=== PATIENT | female | born 1995 | race Caucasian/White ===

== ENCOUNTER → 2020-06-19 08:54 | Outpatient (BNVA) | payer OTHER, MEDICAID, SELFPAY | PROVIDERS: Family Provider Nurse Practitioner Family; PCP Nurse Practitioner; Visit Provider Nurse Practitioner Family | DX: Z11.59 Encounter for screening for other viral diseases (principal); J02.9 Acute pharyngitis, unspecified | CPT/HCPCS: 87071; 87635; 87880 ==

== ENCOUNTER → 2020-11-15 08:30 | Outpatient (BNVA) | payer OTHER, MEDICAID, SELFPAY | PROVIDERS: Family Provider Nurse Practitioner Family; PCP Nurse Practitioner; Visit Provider Nurse Practitioner Women's Health | DX: Z01.419 Encounter for gynecological examination (general) (routine) without abnormal findings (principal); F41.9 Anxiety disorder, unspecified; F32.9 Major depressive disorder, single episode, unspecified; F98.8 Other specified behavioral and emotional disorders with onset usually occurring in childhood and adolescence | CPT/HCPCS: 88175 ==

== ENCOUNTER 2020-12-23 16:07 | Emergency (ER) | payer OTHER, MEDICAID, SELFPAY ==
[2020-12-23 16:13] VITALS: BP 112/77; PULSE 99; RESP 18; TEMP 37.1; O2SAT 96; BMI 22.3
--- NOTE | 2020-12-23 17:23 | ED_ITS ---
Documented by User: Santa Allred MD 12/23/20 18:02 HPI - General: Chief complaint: Abdominal Pain Stated complaint: 6 WKS PREG, SHARP AB PAIN Time Seen by Provider: 12/23/20 16:37 Source: patient and family Mode of arrival: ambulatory History of Present Illness: HPI Narrative: 25-year-old female, , about 6 weeks with nausea and vomiting for several days, hardly able to keep anything down. Is weak and dehydrated. She has intermittent abdominal pains, diffuse, generalized; mostly in her sides and upper stomach. Frequent acid reflux. She has tried taking OTC Dramamine. No sonogram yet, has her first appointment on December 31. Vaginal bleeding or abnormal discharge. Decreased urine output without dysuria or pelvic pain. Complaint: abdominal pain Onset (ago): day(s) Pain Consistency: intermittent Location: pelvis, abdomen and flank Severity: mild Quality: Stabbing, Aching and Sharp Radiation: abdomen Vaginal discharge: none Vaginal bleeding: none Patient : Yes Associated symptoms: Reports abdominal pain and malaise; Deny dysuria, headache(s) or vaginal discharge Review of Systems General: Reports: 10 or more systems reviewed and unremarkable except in HPI and below Const: Reports: body aches, change in appetite, fatigue and malaise; Denies: fever(s), chills or diaphoresis Eyes: Denies: change in vision or blurry vision ENMT: Denies: throat pain, disequilibrium, nasal discharge or nasal congestion Card: Denies: chest pain, palpitations or irregular heart rhythm Resp: Denies: dyspnea, productive cough, wheezing, pain on inspiration or chest congestion GI: Reports: abdominal pain, nausea, vomiting, heartburn and bloating; Denies: hematemesis, diarrhea or constipation : Reports: flank pain and oliguria; Denies: difficulty voiding, dysuria, urinary frequency, genital lesions, vaginal odor, vaginal bleeding or vaginal discharge Musc: Reports: back pain and extremity pain Skin/Breast: Denies: rash, pruritus or erythema Neuro: Denies: headache(s), weakness in extremities, frequent falls, dizziness, vertigo or confusion PFSH ED PFSH: Medical History ADD (attention deficit disorder) Anxiety and depression Environmental and seasonal allergies Migraine no aura-- med change for ADD correccted this No pertinent past medical history neghx: htn,dm,thyroid,dvt/pe PCP: Enio Bhakta Surgical History No history of previous surgery Family History Grandmother Hypertension Maternal and Paternal Ovarian cancer Maternal--dx age late 20's Grandfather Hypertension Maternal and Paternal Family/Other Ovarian cancer Maternal Great Grandmother--dx age 60's Denies family history of Colon cancer Diabetes Heart disease Hypercholesteremia Breast cancer Uterine cancer Thyroid disease Stroke Physical Exam Const: COMMON NORMALS: average body habitus, patient oriented x3 and alert GENERAL APPEARANCE: disheveled and ill appearing; not in distress ORIENTATION/CONSCIOUSNESS: Yes oriented to person and Yes oriented to place HENMT: COMMON NORMALS: normocephalic, atraumatic, Normal external nose present and oropharynx normal HEAD & SCALP: normocephalic and atraumatic NOSE: Normal external nose present Eye: COMMON NORMALS: Equal, round and reactive pupils present, EOMs intact bilaterally, conjunctivae normal and no scleral icterus CONJUNCTIVA: Yes conjunctivae normal PUPIL: Yes Equal, round and reactive pupils present Neck/C-Spine: COMMON NORMALS: full ROM, no lymphadenopathy and supple Resp: COMMON NORMALS: normal respiratory effort, No use of accessory muscles and clear to auscultation bilaterally AUSCULTATION: clear to auscultation bilaterally Cardio: COMMON NORMALS: regular rhythm, S1 normal heart sound present and S2 normal heart sound present RATE: tachycardic RHYTHM: regular rhythm HEART SOUNDS: S1 normal heart sound present and S2 normal heart sound present GI: COMMON NORMALS: Normal to inspection, nondistended, normoactive bowel sounds present, Soft to palpation and non-tender PALPATION: Yes Soft to palpation, No Guarding due to palpation present (GI), No Rigid due to palpation, No Rebound tenderness present and No Bladder palpation abnormal : COMMON NORMALS: Yes no CVA tenderness BLADDER/KIDNEY EXAM: Yes no CVA tenderness and No Bladder palpation abnormal Back/Pelvis: COMMON NORMALS: no CVA tenderness and thoracic and lumbar spine normal to inspection Extremity: COMMON NORMALS: normal to inspection, full ROM and capillary refill normal Neuro: COMMON NORMALS: patient oriented x3, moves all extremities and no focal motor deficits SENSORIUM/ORIENTATION: Yes alert, Yes oriented to person and Yes oriented to place Skin: COMMON NORMALS: no rashes or lesions noted and no wounds GENERAL SKIN EXAM: no rashes or lesions noted Course Vital Signs: Vital signs: Vital Signs Temperature 98.7 F 12/23/20 16:13 Pulse Rate 89 12/23/20 20:31 Respiratory Rate 17 12/23/20 20:31 Blood Pressure 109/66 12/23/20 20:31 Pulse Oximetry 100 12/23/20 20:31 MDM - OB/Uterine Contractions MDM Narrative: Medical decision making narrative: 25-year-old female, 6 weeks , complaining of nausea and vomiting after eating for the last 3 days, malaise, fatigue. Intermittent abdominal pain, nonlocalized. No fever or vaginal bleeding. UA is concentrated, 3+ ketones, otherwise no sign of acute infection. Abdomen is soft and nontender. Sono or quant hCG not indicated at this time, her symptoms are most consistent with related emesis; her abdominal pain is intermittent, mainly epigastric, most likely due to retching. Plan; IV fluid, antiemetics, H2 beny and p.o. challenge. She is tolerating clears, and feels better after treatment, anticipate discharge home to follow-up with her DOCUMENTATION ENGINEER next available. Medical Records: Attestation: I reviewed the patient's medical records. Lab Data: Attestation: I reviewed the patient's lab results. Labs: Lab Results 12/23/20 12/23/20 12/23/20 Range/Units 17:15 17:15 19:11 WBC 9.0 (4.0-10.0) 10^3/ uL RBC 4.61 (4.1-5.3) 10^6/u L Hgb 13.2 (11.5-15.3) g/dL Hct 39.5 (37.0-47.0) % MCV 85.7 (81-99) fL MCH 28.6 (28.0-34.0) pg MCHC 33.4 (30.0-36.0) g/dL RDW 13.4 (12.1-15.1) % Plt Count 238 (130-400) 10^3/c mm MPV 10.3 (7.4-10.4) fL Neut % (Auto) 58.8 % Lymph % (Auto) 31.1 % [place] % (Auto) 9.3 % Eos % (Auto) 0.4 % Baso % (Auto) 0.2 % Neut # (Auto) 5.26 (1.8-7.7) 10^3/u L Lymph # (Auto) 2.8 (0.8-4.8) 10^3/u L [place] # (Auto) 0.8 (0.2-0.9) 10^3/u L Eos # (Auto) 0.0 (0.0-0.8) 10^3/u L Baso # (Auto) 0.0 (0.0-0.1) 10^3/u L Nucleated RBC % (a uto) 0 % Nucleated RBCs # 0.0 /100WBC Sodium (136-145) mmol/L Potassium (3.5-5.1) mmol/L Chloride (98-107) mmol/L Carbon Dioxide (22-29) mmol/L Anion Gap (5-19) BUN (6-20) mg/dL Creatinine (0.5-0.9) mg/dL GFR Calculation (90-130) mL/min Glucose (65-115) mg/dL Calculated Osmolal ity (285-295) mOsm/k g Calcium (8.5-10.5) mg/dL Total Bilirubin (0.15-1.2) mg/dL AST (0-32) U/L ALT (0-33) U/L Alkaline Phosphata se (35-105) IU/L Total Protein (6.6-8.7) g/dL Albumin (3.5-5.2) g/dL Globulin (1.3-4.6) g/dL HCG, Qual Positive H (Negative) Ser , Ember i-Qnt mIU/mL Urine Color Dark yellow (Yellow) Urine Appearance Clear (CLEAR) Urine pH 5 (5-7) Ur Specific Gravit y 1.030 (1.005-1.030) Urine Protein Neg (Negative) Urine Glucose (UA) Norm (Normal) Urine Ketones 3+ H (Negative) Urine Blood Neg (Negative) Urine Nitrate Negative (Negative) Urine Bilirubin 1+ H (Negative) Urine Urobilinogen 8 H (Negative) mg/dL Ur Leukocyte Padmaja ase Negative (Negative) 12/23/20 Range/Units 19:11 WBC (4.0-10.0) 10^3/ uL RBC (4.1-5.3) 10^6/u L Hgb (11.5-15.3) g/dL Hct (37.0-47.0) % MCV (81-99) fL MCH (28.0-34.0) pg MCHC (30.0-36.0) g/dL RDW (12.1-15.1) % Plt Count (130-400) 10^3/c mm MPV (7.4-10.4) fL Neut % (Auto) % Lymph % (Auto) % [place] % (Auto) % Eos % (Auto) % Baso % (Auto) % Neut # (Auto) (1.8-7.7) 10^3/u L Lymph # (Auto) (0.8-4.8) 10^3/u L [place] # (Auto) (0.2-0.9) 10^3/u L Eos # (Auto) (0.0-0.8) 10^3/u L Baso # (Auto) (0.0-0.1) 10^3/u L Nucleated RBC % (a uto) % Nucleated RBCs # /100WBC Sodium 133 L (136-145) mmol/L Potassium 4.0 (3.5-5.1) mmol/L Chloride 103 (98-107) mmol/L Carbon Dioxide 17 L (22-29) mmol/L Anion Gap 17.0 (5-19) BUN 8 (6-20) mg/dL Creatinine 0.4 L (0.5-0.9) mg/dL GFR Calculation 196.1 H (90-130) mL/min Glucose 63 L (65-115) mg/dL Calculated Osmolal ity 272 L (285-295) mOsm/k g Calcium 8.3 L (8.5-10.5) mg/dL Total Bilirubin 0.5 (0.15-1.2) mg/dL AST 15 (0-32) U/L ALT 10 (0-33) U/L Alkaline Phosphata se 37 (35-105) IU/L Total Protein 6.5 L (6.6-8.7) g/dL Albumin 3.9 (3.5-5.2) g/dL Globulin 2.6 (1.3-4.6) g/dL HCG, Qual (Negative) Ser , Ember i-Qnt 02047.00 mIU/mL Urine Color (Yellow) Urine Appearance (CLEAR) Urine pH (5-7) Ur Specific Gravit y (1.005-1.030) Urine Protein (Negative) Urine Glucose (UA) (Normal) Urine Ketones (Negative) Urine Blood (Negative) Urine Nitrate (Negative) Urine Bilirubin (Negative) Urine Urobilinogen (Negative) mg/dL Ur Leukocyte Padmaja ase (Negative) Discharge Plan Discharge Patient Disposition: Home Clinical Impression: Vomiting affecting , Intrauterine Condition: Stable Prescriptions: New Reglan 10 mg tablet 10 mg PO Q6H PRN (Reason: nausea and vomiting) Qty: 20 RF: 0 No Action Dramamine 1 tab PO Q6H PRN (Reason: Nausea) RF: 0 1 tab PO DAILY@2100 RF: 0 Celexa 10 mg tablet 10 mg PO DAILY@2100 RF: 0 Discharge Orders: Discharge ED (Routine); Ordered 12/23/20 Ordered By: Enoc Xie Referrals: Arpit Bhakta, RETAIL SUPERVISOR-C [Primary Care Provider] - Discharge Diet: Advance as tolerated Discharge Activity: Increase activity as tolerated Patient Instructions: (ED), Acute Nausea and Vomiting (ED) Activity Restrictions/Additional Instructions: Return for abdominal cramping, vaginal bleeding, worsening vomiting despite treatment, other concerning symptoms. Take nausea medicine 3 times daily scheduled for the first 48 hours, then as needed. Follow a liquid diet for at least 12 hours before advancing to solid foods. Drink plenty of water at least for the next 48 hours. Coding Level of Care Code ED Care Management Coordinator for Chg Fwd Exam Comprehensive Documented by User: Enoc Xie, 12/23/20 21:46 HPI - General: Chief complaint: Abdominal Pain Stated complaint: 6 WKS PREG, SHARP AB PAIN Time Seen by Provider: 12/23/20 16:37 PFSH ED PFSH: Medical History ADD (attention deficit disorder) Anxiety and depression Environmental and seasonal allergies Migraine no aura-- med change for ADD correccted this No pertinent past medical history neghx: htn,dm,thyroid,dvt/pe PCP: Enio Bhakta Surgical History No history of previous surgery Family History Grandmother Hypertension Maternal and Paternal Ovarian cancer Maternal--dx age late 20's Grandfather Hypertension Maternal and Paternal Family/Other Ovarian cancer Maternal Great Grandmother--dx age 60's Denies family history of Colon cancer Diabetes Heart disease Hypercholesteremia Breast cancer Uterine cancer Thyroid disease Stroke Course Vital Signs: Vital signs: Vital Signs Temperature 98.7 F 12/23/20 16:13 Pulse Rate 89 12/23/20 20:31 Respiratory Rate 17 12/23/20 20:31 Blood Pressure 109/66 12/23/20 20:31 Pulse Oximetry 100 12/23/20 20:31 MDM - OB/Uterine Contractions MDM Narrative: Medical decision making narrative: 25-year-old female checked out to me by Dr. Allred at shift change. She is 6 weeks by history and has had significant vomiting. No vaginal bleeding. She has 3+ ketones in her urine, bicarbonate level 17. She is received 2 L here. She has had Zofran and Pepcid and is feeling better. She has an intrauterine by ultrasound measuring 6 weeks 1 day with an appropriate quant. She will go home on antiemetics. Liquid diet, advancing. Outpatient follow-up. Lab Data: Labs: Lab Results 12/23/20 12/23/20 12/23/20 Range/Units 17:15 17:15 19:11 WBC 9.0 (4.0-10.0) 10^3/ uL RBC 4.61 (4.1-5.3) 10^6/u L Hgb 13.2 (11.5-15.3) g/dL Hct 39.5 (37.0-47.0) % MCV 85.7 (81-99) fL MCH 28.6 (28.0-34.0) pg MCHC 33.4 (30.0-36.0) g/dL RDW 13.4 (12.1-15.1) % Plt Count 238 (130-400) 10^3/c mm MPV 10.3 (7.4-10.4) fL Neut % (Auto) 58.8 % Lymph % (Auto) 31.1 % [place] % (Auto) 9.3 % Eos % (Auto) 0.4 % Baso % (Auto) 0.2 % Neut # (Auto) 5.26 (1.8-7.7) 10^3/u L Lymph # (Auto) 2.8 (0.8-4.8) 10^3/u L [place] # (Auto) 0.8 (0.2-0.9) 10^3/u L Eos # (Auto) 0.0 (0.0-0.8) 10^3/u L Baso # (Auto) 0.0 (0.0-0.1) 10^3/u L Nucleated RBC % (a uto) 0 % Nucleated RBCs # 0.0 /100WBC Sodium (136-145) mmol/L Potassium (3.5-5.1) mmol/L Chloride (98-107) mmol/L Carbon Dioxide (22-29) mmol/L Anion Gap (5-19) BUN (6-20) mg/dL Creatinine (0.5-0.9) mg/dL GFR Calculation (90-130) mL/min Glucose (65-115) mg/dL Calculated Osmolal ity (285-295) mOsm/k g Calcium (8.5-10.5) mg/dL Total Bilirubin (0.15-1.2) mg/dL AST (0-32) U/L ALT (0-33) U/L Alkaline Phosphata se (35-105) IU/L Total Protein (6.6-8.7) g/dL Albumin (3.5-5.2) g/dL Globulin (1.3-4.6) g/dL HCG, Qual Positive H (Negative) Ser , Ember i-Qnt mIU/mL Urine Color Dark yellow (Yellow) Urine Appearance Clear (CLEAR) Urine pH 5 (5-7) Ur Specific Gravit y 1.030 (1.005-1.030) Urine Protein Neg (Negative) Urine Glucose (UA) Norm (Normal) Urine Ketones 3+ H (Negative) Urine Blood Neg (Negative) Urine Nitrate Negative (Negative) Urine Bilirubin 1+ H (Negative) Urine Urobilinogen 8 H (Negative) mg/dL Ur Leukocyte Padmaja ase Negative (Negative) 12/23/20 Range/Units 19:11 WBC (4.0-10.0) 10^3/ uL RBC (4.1-5.3) 10^6/u L Hgb (11.5-15.3) g/dL Hct (37.0-47.0) % MCV (81-99) fL MCH (28.0-34.0) pg MCHC (30.0-36.0) g/dL RDW (12.1-15.1) % Plt Count (130-400) 10^3/c mm MPV (7.4-10.4) fL Neut % (Auto) % Lymph % (Auto) % [place] % (Auto) % Eos % (Auto) % Baso % (Auto) % Neut # (Auto) (1.8-7.7) 10^3/u L Lymph # (Auto) (0.8-4.8) 10^3/u L [place] # (Auto) (0.2-0.9) 10^3/u L Eos # (Auto) (0.0-0.8) 10^3/u L Baso # (Auto) (0.0-0.1) 10^3/u L Nucleated RBC % (a uto) % Nucleated RBCs # /100WBC Sodium 133 L (136-145) mmol/L Potassium 4.0 (3.5-5.1) mmol/L Chloride 103 (98-107) mmol/L Carbon Dioxide 17 L (22-29) mmol/L Anion Gap 17.0 (5-19) BUN 8 (6-20) mg/dL Creatinine 0.4 L (0.5-0.9) mg/dL GFR Calculation 196.1 H (90-130) mL/min Glucose 63 L (65-115) mg/dL Calculated Osmolal ity 272 L (285-295) mOsm/k g Calcium 8.3 L (8.5-10.5) mg/dL Total Bilirubin 0.5 (0.15-1.2) mg/dL AST 15 (0-32) U/L ALT 10 (0-33) U/L Alkaline Phosphata se 37 (35-105) IU/L Total Protein 6.5 L (6.6-8.7) g/dL Albumin 3.9 (3.5-5.2) g/dL Globulin 2.6 (1.3-4.6) g/dL HCG, Qual (Negative) Ser , Ember i-Qnt 41623.00 mIU/mL Urine Color (Yellow) Urine Appearance (CLEAR) Urine pH (5-7) Ur Specific Gravit y (1.005-1.030) Urine Protein (Negative) Urine Glucose (UA) (Normal) Urine Ketones (Negative) Urine Blood (Negative) Urine Nitrate (Negative) Urine Bilirubin (Negative) Urine Urobilinogen (Negative) mg/dL Ur Leukocyte Padmaja ase (Negative) Discharge Plan Discharge Patient Disposition: Home Clinical Impression: Vomiting affecting , Intrauterine Condition: Stable Prescriptions: New Reglan 10 mg tablet 10 mg PO Q6H PRN (Reason: nausea and vomiting) Qty: 20 RF: 0 No Action Dramamine 1 tab PO Q6H PRN (Reason: Nausea) RF: 0 1 tab PO DAILY@2100 RF: 0 Celexa 10 mg tablet 10 mg PO DAILY@2100 RF: 0 Discharge Orders: Discharge ED (Routine); Ordered 12/23/20 Ordered By: Enoc Xie Referrals: Arpit Bhakta, RETAIL SUPERVISOR-C [Primary Care Provider] - Discharge Diet: Advance as tolerated Discharge Activity: Increase activity as tolerated Patient Instructions: (ED), Acute Nausea and Vomiting (ED) Activity Restrictions/Additional Instructions: Return for abdominal cramping, vaginal bleeding, worsening vomiting despite treatment, other concerning symptoms. Take nausea medicine 3 times daily scheduled for the first 48 hours, then as needed. Follow a liquid diet for at least 12 hours before advancing to solid foods. Drink plenty of water at least for the next 48 hours. Coding Level of Care Code ED Care Management Coordinator for Chg Fwd Exam Comprehensive
[2020-12-23 17:37] LABS: Add Urine Microscopic? NO
[2020-12-23 17:45] LABS: Bilirubin Urine 1+ (Negative); Blood Urine Neg (Negative); Glucose Urine UA Norm (Normal); HCG Qualitative Urine. Positive (Negative); Ketones Urine 3+ (Negative); Leukocyte Esterase Urine Negative (Negative); Nitrate Urine Negative (Negative); Protein Urine Neg (Negative); Urine Appearance Clear (CLEAR); Urine Color Dark Yellow (Yellow); Urobilinogen Urine 8 mg/dL (Negative); pH Urine 5 (5-7)
[2020-12-23] MEDS: sodium chloride 0.9% 1,000 ML 999 ML IV ×2 (18:20→19:17)
[2020-12-23] MEDS: famotidine 20 mg/2 mL INJ 40 MG IVP (18:27)
[2020-12-23] MEDS: ondansetron 2 mg/ML SDV 2 mL 4 MG IVP (18:28)
--- NOTE | 2020-12-23 18:56 | USR_ITS ---
PROCEDURE INFORMATION: Exam: US , Limited Exam date and time: 12/23/2020 9:21 PM Age: 25 years old Clinical indication: complicated by abdominal or pelvic pain; Right lower quadrant; First trimester; Gestational age or lmp: 7w2d; ; Patient HX: ; Additional info: 6wk abd pain TECHNIQUE: Imaging protocol: Real-time ultrasound of the maternal uterus with image documentation. Exam focused on the clinical indication. COMPARISON: US Pelvis Female [id number] 10/25/2015 7:37 AM FINDINGS: Gestation: Single intrauterine gestation. 3 mm yolk sac present. heart rate: 141 bpm. Placenta: 1.1 x 0.6 cm hypoechoic region superior to the gestation could represent a small subchorionic hemorrhage. BIOMETRY: Gestational age (AUA): 6 weeks 1 day Estimated due date (AUA): 08/17/2021. [place] length: 4.4 mm MATERNAL: Cervix: 3.5 cm in length. Right adnexa: The right ovary measures 2.1 x 2.9 x 1.4 cm with normal blood flow. Left adnexa: The left ovary measures 2.5 x 2.9 x 1.8 cm with normal blood flow. Intraperitoneal space: No free peritoneal fluid. US/US OB limited [id number] IMPRESSION: 1. Single viable intrauterine gestation estimated at 6 weeks 1 day. 2. Probable small superior subchorionic hemorrhage.
[2020-12-23 19:19] VITALS: BP 116/70; PULSE 85; RESP 17; O2SAT 100
[2020-12-23 19:22] LABS: Basophils % 0.2 %; Eosinophils % 0.4 %; Hematocrit 39.5 % (37.0-47.0); Hemoglobin 13.2 g/dL (11.5-15.3); Lymphocytes # 2.8 10^3/uL (0.8-4.8); Lymphocytes % 31.1 %; Mean Corpuscular HGB Conc 33.4 g/dL (30.0-36.0); Mean Corpuscular Hemoglobin 28.6 pg (28.0-34.0); Mean Corpuscular Volume 85.7 fL (81-99); Mean Platelet Volume 10.3 fL (7.4-10.4); Monocytes # 0.8 10^3/uL (0.2-0.9); Monocytes % 9.3 %; Neutrophils # 5.26 10^3/uL (1.8-7.7); Neutrophils % 58.8 %; Nucleated Red Blood Cells % 0 %; Platelet Count 238 10^3/cmm (130-400); Red Blood Count 4.61 10^6/uL (4.1-5.3); Red Cell Distribution Width 13.4 % (12.1-15.1)
[2020-12-23 20:07] LABS: Alanine Aminotransferase 10 U/L (0-33); Albumin Level 3.9 g/dL (3.5-5.2); Alkaline Phosphatase 37 IU/L (35-105); Aspartate Amino Transferase 15 U/L (0-32); Blood Urea Nitrogen 8 mg/dL (6-20); Calcium 8.3 mg/dL (8.5-10.5); Carbon Dioxide 17 mmol/L (22-29); Chloride 103 mmol/L (98-107); Globulin 2.6 g/dL (1.3-4.6); Glomerular Filtration Rate 196.1 mL/min (90-130); Glucose 63 mg/dL (65-115); Osmolality Calculated 272 mOsm/kg (285-295); Sodium 133 mmol/L (136-145); Total Bilirubin 0.5 mg/dL (0.15-1.2); Total Protein 6.5 g/dL (6.6-8.7)
[2020-12-23 20:31] VITALS: BP 109/66; PULSE 89; RESP 17; O2SAT 100
[2020-12-23 21:53] VITALS: BP 99/62; PULSE 82; RESP 18; O2SAT 99
== END 2020-12-23 21:53 | disposition home or self-care (01) ==
PROVIDERS: Family Medicine; Emergency Provider Emergency Medicine; PCP Nurse Practitioner
DX: O21.9 Vomiting of pregnancy, unspecified (principal); Z3A.01 Less than 8 weeks gestation of pregnancy
CPT/HCPCS: 36415; 76815; 80053; 81003; 81025; 84702; 85025; 96361; 96374; 96375; 99283; J2405; J3490; J7030

== ENCOUNTER 2021-01-10 21:42 | Emergency (ER) | payer OTHER, MEDICAID, SELFPAY ==
[2021-01-10 21:52] VITALS: BP 103/71; PULSE 90; RESP 16; TEMP 36.8; O2SAT 98; BMI 23.0
--- NOTE | 2021-01-10 22:56 | ED_ITS ---
HPI - Abdominal Pain General: Chief Complaint: Abdominal Pain Stated Complaint: stomach pain, 8 weeks preg Time Seen by Provider: 01/10/21 22:43 History of Present Illness: HPI narrative: Patient is a 25-year-old female comes to the ED with UTI symptoms. Patient is also approximately 8 weeks . She denies any vaginal bleeding. She has been having some dysuria for the past 2 days and today she started developing some lower pelvic pain. Denies any fever, chills, constipation, diarrhea, hematuria. Patient does states she has had some nausea and emesis that started with this . Associated Symptoms: Reports dysuria; Denies chills, constipation, diarrhea, fever(s), hematochezia, hematuria, nausea and vomiting Review of Systems Const: Denies: fever(s), chills or fatigue Eyes: Denies: change in vision or eye discomfort ENMT: Denies: throat pain, odynophagia, nasal discharge or nasal congestion Card: Denies: chest pain, palpitations, edema, swelling of feet/ankles, dyspnea on exertion or orthopnea Resp: Denies: dyspnea, productive cough or non-productive cough GI: Denies: abdominal pain, nausea, vomiting, diarrhea, constipation or hematochezia : Reports: dysuria and pelvic pain; Denies: flank pain or hematuria Musc: Denies: neck pain, back pain or extremity swelling Skin/Breast: Denies: rash or new lesions Neuro: Denies: headache(s), numbness in extremities or weakness in extremities PFSH ED PFSH: Medical History ADD (attention deficit disorder) Anxiety and depression Environmental and seasonal allergies Migraine no aura-- med change for ADD correccted this No pertinent past medical history neghx: htn,dm,thyroid,dvt/pe PCP: Enio Bhakta Surgical History No history of previous surgery Family History Grandmother Hypertension Maternal and Paternal Ovarian cancer Maternal--dx age late 20's Grandfather Hypertension Maternal and Paternal Family/Other Ovarian cancer Maternal Great Grandmother--dx age 60's Denies family history of Colon cancer Diabetes Heart disease Hypercholesteremia Breast cancer Uterine cancer Thyroid disease Stroke Physical Exam Const: COMMON NORMALS: no acute distress, patient oriented x3, healthy appearing and alert HENMT: COMMON NORMALS: normocephalic HEAD & SCALP: normocephalic MOUTH: Normal oral and palatal mucosa present THROAT: posterior oropharynx normal and uvula midline Neck/C-Spine: COMMON NORMALS: supple GENERAL: Yes normal visual inspection Resp: COMMON NORMALS: normal respiratory effort, No retractions, No use of accessory muscles and clear to auscultation bilaterally AUSCULTATION: clear to auscultation bilaterally Cardio: COMMON NORMALS: regular rate, regular rhythm, S1 normal heart sound present, S2 normal heart sound present, No gallops present (Cardio), No clicks present (Cardio), No murmurs present (Cardio) and Peripheral pulses 2+ throughout RATE: regular rate RHYTHM: regular rhythm HEART SOUNDS: S1 normal heart sound present and S2 normal heart sound present PERIPHERAL PULSES: Peripheral pulses 2+ throughout GI: COMMON NORMALS: Normal to inspection, nondistended, normoactive bowel sounds present, Soft to palpation, non-tender and no masses PALPATION: Yes Soft to palpation and Yes Bladder palpation abnormal : COMMON NORMALS: Yes no CVA tenderness BLADDER/KIDNEY EXAM: Yes no CVA tenderness and Yes Bladder palpation abnormal Bladder abnormal details: tender Back/Pelvis: COMMON NORMALS: no CVA tenderness Extremity: COMMON NORMALS: normal to inspection Neuro: COMMON NORMALS: patient oriented x3 SENSORIUM/ORIENTATION: Yes alert GAIT: Yes Normal gait present Skin: GENERAL SKIN EXAM: dry skin Course ED course: Dr. Muller performed an ultrasound to check on baby. He saw an intrauterine with a heart rate of 154. Vital Signs: Vital signs: Vital Signs Temperature 98.2 F 01/10/21 21:52 Pulse Rate 90 01/10/21 21:52 Respiratory Rate 16 01/10/21 23:48 Blood Pressure 103/71 01/10/21 21:52 Pulse Oximetry 98 01/10/21 23:48 MDM - Abdominal Pain MDM Narrative: Medical decision making narrative: Patient is a 8-week 25-year-old female who comes to the ED with UTI symptoms. Denies any vaginal bleeding. exam shows a patient in no acute distress. She has some tenderness to palpation over the bladder. Dr. Salas performed a bedside ultrasound and it showed an intrauterine with a heart rate of 154. UA showed some signs of UTI. Patient diagnosed with a UTI and discharged home with a prescription for nitrofurantoin. She was told to follow-up with her OB doctor at next scheduled appointment. Return to ED precautions given. Patient understood and agreed with plan. Lab Data: Attestation: I reviewed the patient's lab results. Labs: Lab Results 01/10/21 Range/Units 22:47 Urine Color Dark yellow (Yellow) Urine Appearance Cloudy (CLEAR) Urine pH 5 (5-7) Ur Specific Gravit y 1.025 (1.005-1.030) Urine Protein Trace (Negative) Urine Glucose (UA) Norm (Normal) Urine Ketones 3+ H (Negative) Urine Blood Neg (Negative) Urine Nitrate Negative (Negative) Urine Bilirubin 1+ H (Negative) Urine Urobilinogen 4 H (Negative) mg/dL Ur Leukocyte Padmaja ase Negative (Negative) Urine RBC 0-4 H (0-2) /hpf Urine WBC 0-4 H (0-5) /hpf Ur Squamous Epith Cells 25-40 H (0-5) /hpf Calcium Oxalate Cr ystal 0-4 H /hpf Amorphous Sediment Not Reportable Urine Bacteria 1+ H (NONE) /hpf Urine Mucus 3+ /hpf Discharge Plan Discharge Patient Disposition: Home Clinical Impression: UTI (urinary tract infection) during Qualifiers: Trimester: first trimester Qualified Code(s): O23.41 - Unspecified infection of urinary tract in , first trimester Condition: Stable Prescriptions: New nitrofurantoin macrocrystal 100 mg capsule 100 mg PO BID 7 Days Qty: 14 RF: 0 No Action Dramamine 1 tab PO Q6H PRN (Reason: Nausea) RF: 0 1 tab PO DAILY@2100 RF: 0 Celexa 10 mg tablet 10 mg PO DAILY@2100 RF: 0 Reglan 10 mg tablet 10 mg PO Q6H PRN (Reason: nausea and vomiting) Qty: 20 RF: 0 Discharge Orders: Discharge ED (Routine); Ordered 01/10/21 Ordered By: Toni Sommer Referrals: Arpit Bhakta FNP-C [Primary Care Provider] - Discharge Diet: Regular Discharge Activity: Increase activity as tolerated Patient Instructions: Urinary Tract Infection in Women (ED) Activity Restrictions/Additional Instructions: Follow-up with medical provider at your next OB doctor appointment. Take medications as prescribed. Drink plenty of water to help flush out UTI. Return to the ER or your medical provider if condition worsens. Please read and understand discharge instructions. If any questions, please ask. Coding Level of Care Code ED Tree Chipper for Chg Fwd Exam Comprehensive
[2021-01-10 22:59] LABS: Urine Color Dark Yellow (Yellow)
[2021-01-10 23:00] LABS: Add Urine Microscopic? YES; Bilirubin Urine 1+ (Negative); Blood Urine Neg (Negative); Glucose Urine UA Norm (Normal); Ketones Urine 3+ (Negative); Leukocyte Esterase Urine Negative (Negative); Nitrate Urine Negative (Negative); Protein Urine Trace (Negative); Specific Gravity, Urine 1.025 (1.005-1.030); Urine Appearance Cloudy (CLEAR); Urobilinogen Urine 4 mg/dL (Negative); pH Urine 5 (5-7)
[2021-01-10 23:01] LABS: Bacteria Urine 1+ /hpf; RBC Urine 0-4 /hpf (0-2); Squamous Epithelial Cell Urine 25-40 /hpf (0-5); WBC Urine 0-4 /hpf (0-5)
[2021-01-10 23:02] LABS: Add Urine Culture? No; Calcium Oxalate Crystals Urine 0-4 /hpf; Mucus Urine 3+ /hpf
[2021-01-10] MEDS: nitrofurantoin SR (BID) 100 mg Capsule PO (23:45)
[2021-01-10 23:48] VITALS: RESP 16; O2SAT 98
--- NOTE | 2021-01-29 06:59 | P.HP_ITS ---
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 She has been tried on several regimens including Zofran, promethazine, promethazine suppositories. Despite that, she has intermittently struggled with nausea and vomiting and has not been able to eat well. When she arrived to my office yesterday, she been having nausea and vomiting and has not been to keep food down for the last 3 days. She been using his promethazine suppositories without success. Her urine specific gravity was greater than 1.030 and her urine demonstrated 4+ ketones. She complained of generalized abdominal pain. She lost over 20 pounds since the beginning of her . She does have a difficult time giving a clear history, and in the past her and her mother have been the main historians. Present Details Date of Last Menstrual Period: 11/05/20 Calculated Date of Delivery: 08/12/21 Gestational Age Based on Last Menstrual Period: 12 Review of Systems General: Reports: 10 or more systems reviewed and unremarkable except in HPI and below Const: Reports: body aches and fatigue; Denies: fever(s) Eyes: Denies: change in vision Card: Denies: chest pain GI: Reports: nausea, vomiting, heartburn and GI cramping; Denies: hematemesis or diarrhea : Reports: flank pain Musc: Reports: back pain Jigar/Lymph: Denies: easy bruising Medications/Allergies Home Medications Medication Instructions Recorded Confirmed Last Taken Type 1 tab PO DAILY@2100 12/23/20 01/28/21 01/14/21 16:00 History promethazine 25 mg PO Q6H PRN 01/28/21 01/28/21 Unknown History sertraline 25 mg PO DAILY 01/28/21 01/28/21 01/27/21 History Allergies Allergy/AdvReac Type Severity Reaction Status Date / Time Penicillins Allergy Severe Rash Verified 11/19/20 16:58 PFSH 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 PFSH: Medical History ADD (attention deficit disorder) Anxiety and depression Environmental and seasonal allergies Migraine no aura-- med change for ADD correccted this No pertinent past medical history neghx: htn,dm,thyroid,dvt/pe PCP: Enio Bhakta Surgical History No history of previous surgery Family History Grandmother Hypertension Maternal and Paternal Ovarian cancer Maternal--dx age late 20's Grandfather Hypertension Maternal and Paternal Family/Other Ovarian cancer Maternal Great Grandmother--dx age 60's Denies family history of Colon cancer Diabetes Heart disease Hypercholesteremia Breast cancer Uterine cancer Thyroid disease Stroke History History History 0 Term Miscarriages/Ectopic Living Children Vitals/I&O/Wt Last Vital Signs Temp 98.2 F 01/10/21 21:52 Pulse 90 01/10/21 21:52 Resp 16 01/10/21 23:48 BP 103/71 01/10/21 21:52 Pulse Ox 98 01/10/21 23:48 Physical Exam Const: COMMON NORMALS: no acute distress and patient oriented x3 GENERAL APPEARANCE: cooperative, comfortable and well developed HENMT: COMMON NORMALS: normocephalic and moist oral mucous membranes HEAD & SCALP: normocephalic Chest: COMMONS NORMALS: normal inspection of the chest Resp: COMMON NORMALS: normal respiratory effort and clear to auscultation bilaterally AUSCULTATION: clear to auscultation bilaterally Cardio: COMMON NORMALS: regular rate, regular rhythm, No gallops present (Cardio), No murmurs present (Cardio) and No rub (Cardio) RATE: regular rate RHYTHM: regular rhythm GI: COMMON NORMALS: Normal to inspection, nondistended, normoactive bowel sounds present (Yesterday my office she did have some generalized tenderness. Today nttp) Extremity: COMMON NORMALS: normal to inspection Neuro: COMMON NORMALS: patient oriented x3 and no focal motor deficits Psych: COMMON NORMALS: negative for normal affect (Flat affect) Skin: COMMON NORMALS: no rashes or lesions noted GENERAL SKIN EXAM: no rashes or lesions noted Data Other Labs: On admission her white blood count was 11.1, with a hemoglobin of 15.2 and a platelet count of 240. There was no left shift. Admission her sodium was 132 with a potassium of 3.0, chloride of 96, anion gap of 20, BUN of 11, creatinine 0.4, glucose 110, bilirubin 1.7, AST 77, ALT 211. CMP today is as follows sodium 138, potassium 3.4, chloride 112, carbon dioxide 16, anion gap 13.4, BUN 5, creatinine 0.3, glucose 75, calcium 7.5, total bili 0.9, AST 46, ALT 122, total protein 4.9, albumin 2.8. Urinalysis demonstrated 1+ urine protein, 3+ ketones, 2+ blood, 1+ urine bilirubin, 4+ urine urobilinogen, 5-10 RBCs, 50-25 white blood cells, 15-25 epithelial cells, 2+ bacteria A&P Assessment and plan (1) Gallbladder sludge: It is not clear how much of an impact this is having on her current clinical status. Her liver enzymes were elevated on admission. They are now improving. But she did have generalized abdominal pain yesterday, that has resolved. She has not had anything to eat besides if you bites of Jell-O this morning. I have consulted Dr. Pulliam to also evaluate her situation. We will advance her diet today and see whether her clinical response to food would be indicative of a biliary problem. Status: Acute (2) Weight loss of more than 10% body weight: Status: Acute (3) Dehydration during : The patient was given over 3 L of normal saline. I am going to encourage her to drink water today. I have markedly reduced her IV fluid rate. Status: Acute (4) First trimester : The ultrasound demonstrates a normal-appearing fetus. Status: Acute (5) Nausea/vomiting in : She was placed on Reglan in the ER. We are going to continue to see how well she responds to Reglan. We are going to try and transition her to p.o. Reglan as needed for nausea and vomiting. Status: Acute (6) Hypokalemia: Has improved with potassium supplementation. Status: Acute (7) Hyponatremia: Resolved with normal saline IV fluids Status: Acute (8) Hypoalbuminemia: Is indicative of her malnutrition due to her lack ability to eat over the last Several weeks. Status: Acute (9) Abnormal urinalysis: And we did treat her empirically for a urinary tract and infection. We will perform a culture prior to starting antibiotics. Status: Acute Attestations Medical Necessity Statement*: The patient is going to require at least a 2 night stay in the hospital. How long she ends up staying will be dictated by how well her nausea vomiting is controlled, and how well she is able to improve her p.o. intake. Coding Level of Care Code Acute Workforce Analyst for [facility] Fwd Exam Comprehensive Diagnoses Gallbladder sludge K82.8 Weight loss of more than 10% body weight R63.4 Dehydration during O26.899; E86.0 First trimester Z34.91 Nausea/vomiting in O21.9 Hypokalemia E87.6 Hyponatremia E87.1 Hypoalbuminemia E88.09 Abnormal urinalysis R82.90
== END 2021-01-10 23:49 | disposition home or self-care (01) ==
PROVIDERS: Emergency Medicine; Emergency Provider Physician Assistant; PCP Nurse Practitioner
DX: O23.41 Unspecified infection of urinary tract in pregnancy, first trimester (principal); Z3A.08 8 weeks gestation of pregnancy
CPT/HCPCS: 12345; 81001; 99283

== ENCOUNTER 2021-01-14 16:23 | Outpatient (CLI) | payer OTHER, MEDICAID, SELFPAY ==
[2021-01-14 17:03] LABS: Basophils % 0.3 %; Eosinophils % 0.3 %; Hematocrit 46.1 % (37.0-47.0); Hemoglobin 15.9 g/dL (11.5-15.3); Lymphocytes # 2.2 10^3/uL (0.8-4.8); Lymphocytes % 22.4 %; Mean Corpuscular HGB Conc 34.5 g/dL (30.0-36.0); Mean Corpuscular Hemoglobin 29.1 pg (28.0-34.0); Mean Corpuscular Volume 84.3 fL (81-99); Mean Platelet Volume 10.4 fL (7.4-10.4); Monocytes # 0.8 10^3/uL (0.2-0.9); Monocytes % 8.1 %; Neutrophils # 6.57 10^3/uL (1.8-7.7); Neutrophils % 68.6 %; Nucleated Red Blood Cells % 0 %; Platelet Count 281 10^3/cmm (130-400); Red Blood Count 5.47 10^6/uL (4.1-5.3); Red Cell Distribution Width 13.3 % (12.1-15.1); White Blood Count 9.6 10^3/uL (4.0-10.0)
[2021-01-14] MEDS: sodium chloride 0.9% 1,000 ML 999 ML IV ×2 (17:10→18:13)
[2021-01-14] MEDS: promethazine 25 mg/mL SDV 1 mL IM (17:12)
[2021-01-14 17:18] LABS: Bilirubin Urine 1+ (Negative); Blood Urine 2+ (Negative); Glucose Urine UA Norm (Normal); Ketones Urine 3+ (Negative); Leukocyte Esterase Urine 1+ (Negative); Nitrate Urine Negative (Negative); Protein Urine 1+ (Negative); Squamous Epithelial Cell Urine 15-25 /hpf (0-5); Urine Appearance Cloudy (CLEAR); Urine Color Dark Yellow (Yellow); Urobilinogen Urine 4+ mg/dL (Negative); WBC Urine 15-25 /hpf (0-5); pH Urine 5 (5-7)
[2021-01-14 17:19] LABS: Add Urine Culture? No; Bacteria Urine 2+ /hpf
[2021-01-14 17:25] LABS: Alanine Aminotransferase 12 U/L (0-33); Albumin Level 4.7 g/dL (3.5-5.2); Alkaline Phosphatase 48 IU/L (35-105); Anion Gap 20.4 (5-19); Aspartate Amino Transferase 16 U/L (0-32); Blood Urea Nitrogen 10 mg/dL (6-20); Calcium 9.5 mg/dL (8.5-10.5); Carbon Dioxide 14 mmol/L (22-29); Chloride 102 mmol/L (98-107); Globulin 3.7 g/dL (1.3-4.6); Glomerular Filtration Rate 151.6 mL/min (90-130); Glucose 91 mg/dL (65-115); Osmolality Calculated 273 mOsm/kg (285-295); Potassium 4.4 mmol/L (3.5-5.1); Sodium 132 mmol/L (136-145); Total Bilirubin 1.2 mg/dL (0.15-1.2); Total Protein 8.4 g/dL (6.6-8.7)
[2021-01-14 19:29] VITALS: BP 109/72; PULSE 91; RESP 16; TEMP 37.2; O2SAT 100
[2021-01-14 19:30] VITALS: BP 109/72; PULSE 91; RESP 16; TEMP 37.2; O2SAT 100
== END 2021-01-14 19:35 | disposition home or self-care (01) ==
LOC: OPOB 16:28 → OBGYN 16:30
PROVIDERS: PCP Nurse Practitioner; Visit Provider Family Medicine
DX: O21.0 Mild hyperemesis gravidarum (principal); Z3A.00 Weeks of gestation of pregnancy not specified
CPT/HCPCS: 36415; 80053; 81001; 85025; 87086; 96360; 96361; 96372; 99211; J2550; J7030

== ENCOUNTER 2021-01-28 18:05 | Inpatient (IN) | payer OTHER, MEDICAID, SELFPAY ==
[2021-01-28 18:11] VITALS: BP 121/82; PULSE 119; RESP 16; TEMP 36.9; O2SAT 96; BMI 21.3
--- NOTE | 2021-01-28 18:16 | W.ED.NAVMDI ---
HPI - Nausea/Vomiting/Diarrhea General: Chief complaint: Recheck/Abnormal Lab/Rx Stated complaint: dehydration-direct admit Time Seen by Provider: 01/28/21 18:07 Source: patient Mode of arrival: ambulatory Limitations: no limitations History of Present Illness: HPI Narrative: 25-year-old female who currently 11 weeks sent here by her OB for hyperemesis gravidarum. States she has had vomiting severely over the last 2 to 3 days. She was seen at an urgent care clinic and had 4+ ketones in her urine. Patient was sent here to be admitted on IV fluids. She states she has had diffuse abdominal cramping. She denies any vaginal bleeding. Denies any worsening improving factors. States she has had vomiting over the last 4 weeks with this . This is her first . Associated nausea: Yes Associated symtoms: Reports nausea; Denies chest pain, dysuria or headache(s) Review of Systems Const: Denies: fever(s), chills, body aches or change in appetite Eyes: Denies: blurry vision or eye discomfort ENMT: Denies: throat pain or dental pain Card: Denies: chest pain Resp: Denies: dyspnea GI: Reports: nausea and vomiting : Denies: dysuria Musc: Denies: neck pain or back pain Skin/Breast: Denies: rash Neuro: Denies: headache(s) Psych: Denies: depression Jigar/Lymph: Denies: easy bruising All/Imm: Denies: urticaria PFSH ED PFSH: Medical History ADD (attention deficit disorder) Anxiety and depression Environmental and seasonal allergies Migraine no aura-- med change for ADD correccted this No pertinent past medical history neghx: htn,dm,thyroid,dvt/pe PCP: Enio Bhakta Surgical History No history of previous surgery Family History Grandmother Hypertension Maternal and Paternal Ovarian cancer Maternal--dx age late 20's Grandfather Hypertension Maternal and Paternal Family/Other Ovarian cancer Maternal Great Grandmother--dx age 60's Denies family history of Colon cancer Diabetes Heart disease Hypercholesteremia Breast cancer Uterine cancer Thyroid disease Stroke Physical Exam Const: COMMON NORMALS: no acute distress, patient oriented x3 and healthy appearing HENMT: COMMON NORMALS: normocephalic and atraumatic HEAD & SCALP: normocephalic and atraumatic Eye: COMMON NORMALS: Equal, round and reactive pupils present and EOMs intact bilaterally PUPIL: Yes Equal, round and reactive pupils present Neck/C-Spine: COMMON NORMALS: full ROM and supple Chest: COMMONS NORMALS: normal inspection of the chest and normal palpation of entire chest wall Resp: COMMON NORMALS: normal respiratory effort, No retractions, No use of accessory muscles and clear to auscultation bilaterally AUSCULTATION: clear to auscultation bilaterally Cardio: COMMON NORMALS: regular rate, regular rhythm and No murmurs present (Cardio) RATE: regular rate RHYTHM: regular rhythm GI: COMMON NORMALS: Normal to inspection, nondistended, normoactive bowel sounds present, Soft to palpation, non-tender and no masses PALPATION: Yes Soft to palpation Extremity: COMMON NORMALS: normal to inspection and full ROM Neuro: COMMON NORMALS: patient oriented x3, moves all extremities and no focal motor deficits Psych: COMMON NORMALS: mental status grossly normal, Normal thought process present and cooperative THOUGHT PROCESS: Normal thought process present Skin: COMMON NORMALS: no rashes or lesions noted and no wounds GENERAL SKIN EXAM: no rashes or lesions noted Course Vital Signs: Vital signs: Vital Signs Temperature 98.4 F 01/28/21 18:11 Pulse Rate 119 H 01/28/21 18:11 Respiratory Rate 16 01/28/21 18:11 Blood Pressure 121/82 01/28/21 18:11 Pulse Oximetry 96 01/28/21 18:11 MDM - Nausea/Vomiting/Diarrhea MDM Narrative: Medical decision making narrative: Patient presents here with hyperemesis gravidarum. Patient has fluids and nausea medicine started. I spoke to her OB Dr. Deleon and will admit. Patient has been stable while here. 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
[2021-01-28 18:22] VITALS: O2SAT 96
[2021-01-28 18:29] LABS: Basophils % 0.3 %; Eosinophils % 0.1 %; Hematocrit 41.9 % (37.0-47.0); Hemoglobin 15.2 g/dL (11.5-15.3); Lymphocytes # 1.6 10^3/uL (0.8-4.8); Lymphocytes % 14.1 %; Mean Corpuscular HGB Conc 36.3 g/dL (30.0-36.0); Monocytes # 0.8 10^3/uL (0.2-0.9); Monocytes % 7.5 %; Neutrophils # 8.64 10^3/uL (1.8-7.7); Neutrophils % 77.8 %; Nucleated Red Blood Cells % 0 %; Platelet Count 240 10^3/cmm (130-400); Red Blood Count 5.24 10^6/uL (4.1-5.3); Red Cell Distribution Width 12.9 % (12.1-15.1); White Blood Count 11.1 10^3/uL (4.0-10.0)
[2021-01-28] MEDS: metoclopramide 5 mg/mL SDV 2 mL 10 MG IVP (18:37)
[2021-01-28] MEDS: diphenhydrAMINE 50 mg/mL SDV 1mL IVP (18:37)
[2021-01-28] MEDS: sodium chloride 0.9% 1,000 ML 999 ML IV ×2 (18:38→19:58)
[2021-01-28 18:52] LABS: Alanine Aminotransferase 211 U/L (0-33); Albumin Level 4.4 g/dL (3.5-5.2); Alkaline Phosphatase 62 IU/L (35-105); Aspartate Amino Transferase 77 U/L (0-32); Blood Urea Nitrogen 11 mg/dL (6-20); Calcium 9.5 mg/dL (8.5-10.5); Carbon Dioxide 19 mmol/L (22-29); Chloride 96 mmol/L (98-107); Globulin 3.3 g/dL (1.3-4.6); Glomerular Filtration Rate 196.1 mL/min (90-130); Glucose 110 mg/dL (65-115); Osmolality Calculated 274 mOsm/kg (285-295); Sodium 132 mmol/L (136-145); Total Bilirubin 1.7 mg/dL (0.15-1.2); Total Protein 7.7 g/dL (6.6-8.7)
--- NOTE | 2021-01-28 19:05 | PC.NURSE ---
Patient arrived on unit at this time via stretcher in stable condition. Patient was able to ambulate to bed. vitals taken and fluids placed on pump and bolusing per physician orders. Patient denies any complaints at this time.
[2021-01-28 19:10] VITALS: BP 113/73; PULSE 95; RESP 15; TEMP 36.8; O2SAT 100
--- NOTE | 2021-01-28 19:25 | PC.NURSE ---
Heart tones dopplered in the 150's.
--- NOTE | 2021-01-28 19:40 | US_ITS ---
WS: [id number] ULTRASOUND ABDOMEN LIMITED CLINICAL INFORMATION: abnormal labs COMPARISON: None. FINDINGS: Liver Size: Normal. Craniocaudal length: 13.3 cm. Echogenicity: Normal. Surface nodularity: None. Mass (size and location): None. Bile ducts Intrahepatic ducts: Normal. Common bile duct diameter: 0.5 cm. Gallbladder Diffuse sludge in the gallbladder. Gallstones: None. Gallbladder sludge: Present Gallbladder wall thickening: None. Pericholecystic fluid: None. Sonographic Guzman sign: Absent. Pancreas Normal as visualized. Right kidney: Normal. Hydronephrosis: None. Size: 9.1 cm x 4.9 cm x 4.1 cm. Abdominal aorta and IVC Visualized portions are normal. Ascites: None. US/US gall bladder [id number] IMPRESSION: 1. Normal liver. 2. Sludge in the gallbladder. Normal common bile duct. No gallbladder wall thi ckening. 3. No hydronephrosis in right kidney.
--- NOTE | 2021-01-28 19:48 | US_ITS ---
WS: [id number] ULTRASOUND EARLY TECHNIQUE: Transabdominal sonography of the pelvis was performed. Followed by transvaginal sonography to better evaluate the uterus and ovaries. CLINICAL INFORMATION: hyperemisis LMP: 11/05/2020 Beta hCG: Unknown. COMPARISON: None. FINDINGS: UTERUS AND GESTATIONAL SAC Intrauterine gestations: Intrauterine gestational sac with fetus. Estimated gestational age: 11w6d Estimated delivery August 13, 2021 [place] rump length (CRL): 5.2 cm. heart motion: 180 BPM. Subchorionic hemorrhage: None. OVARIES Right ovary: Normal. Left ovary: Normal. FREE FLUID None. US/US OB <= 14 weeks fetus [id number] IMPRESSION: 1. Single live intrauterine with cardiac activity. 2. Estimated gestational age; 11w6d 3. Cervix is closed measuring 3.6 cm
--- NOTE | 2021-01-28 20:00 | PC.NURSE ---
Adiel from ultrasound called and notified of patient orders.
[2021-01-28] MEDS: lidocaine 1% 5 ML in potassium chloride premix 100 ML 17.5 ML IV (20:15)
[2021-01-28] MEDS: sertraline 50 mg Tablet 25 MG PO (20:15)
--- NOTE | 2021-01-28 20:20 | PC.NURSE ---
Adiel with ultrasound at bedside.
--- NOTE | 2021-01-28 20:40 | PC.NURSE ---
Ultrasound finished at this time.
[2021-01-28] MEDS: sodium chloride 0.9% 1,000 ML 200 ML IV (21:03)
[2021-01-28 21:05] VITALS: BP 100/60; BP 100/63; PULSE 92; RESP 16; O2SAT 100
--- NOTE | 2021-01-28 21:05 | PC.NURSE ---
patient reporting indigestion at this time.
[2021-01-28] MEDS: famotidine 20 mg Tablet PO (22:00)
[2021-01-29] VITALS: BP 87/48; PULSE 78; RESP 15; TEMP 36.9; O2SAT 98
[2021-01-29] MEDS: sodium chloride 0.9% 1,000 ML 200 ML IV (01:56)
[2021-01-29] MEDS: metoclopramide 10 mg Tablet PO (02:40)
[2021-01-29 04:56] VITALS: BP 81/54; PULSE 78; RESP 16; TEMP 36.7; O2SAT 99
[2021-01-29 05:23] LABS: Alanine Aminotransferase 122 U/L (0-33); Albumin Level 2.8 g/dL (3.5-5.2); Alkaline Phosphatase 39 IU/L (35-105); Anion Gap 13.4 (5-19); Aspartate Amino Transferase 46 U/L (0-32); Blood Urea Nitrogen 5 mg/dL (6-20); Calcium 7.5 mg/dL (8.5-10.5); Carbon Dioxide 16 mmol/L (22-29); Chloride 112 mmol/L (98-107); Globulin 2.1 g/dL (1.3-4.6); Glomerular Filtration Rate 273.3 mL/min (90-130); Glucose 75 mg/dL (65-115); Osmolality Calculated 282 mOsm/kg (285-295); Potassium 3.4 mmol/L (3.5-5.1); Sodium 138 mmol/L (136-145); Total Bilirubin 0.9 mg/dL (0.15-1.2); Total Protein 4.9 g/dL (6.6-8.7)
[2021-01-29 05:27] LABS: Creatinine Clr Calc Pharmacy 224.5085
--- NOTE | 2021-01-29 05:40 | PC.NURSE ---
RN at bedside, patient did not drink cup of ice water that was given at beginning of shift, patient requests new cup of ice water to drink, jello given to the patient at this time as well.
--- NOTE | 2021-01-29 07:20 | PM.CONSULT ---
Providers/Reason For Consult Consulting Physican/Specialty*: General Surgery Bharath Pulliam MD Reason for Consult*: Nausea, vomiting, elevated liver function studies. Patient is at 12 weeks gestation. Attending Physician: Viktor Deleon MD Primary Care Provider: Aript Bhakta, CLOTH DESIZING RANGE TENDER-C History of Present Illness History of Present Illness Lavern Vera is a 25 year old female currently at 12 weeks gestation who says she has been having a lot of problems with nausea and vomiting ever since she got . She said this is usually accompanied by some abdominal pain but points down to her lower abdomen below the umbilical level. She says it is a vicious cycle of getting dehydrated and then constipated. She was not having any of these problems before she got . She has not had any particular food intolerances during her , but says that she has difficulty keeping anything down and has been diagnosed with hyperemesis gravidarum. The patient has lost 20 to 25 pounds since her began due to these problems. She was brought into the hospital yesterday and her liver function studies were found to be mildly elevated. She had a gallbladder ultrasound (radiologist's reading is still pending) and underwent hydration. She says she is feeling a little bit better this morning. Review of Systems General: Reports: 10 or more systems reviewed and unremarkable except in HPI and below Const: Denies: fever(s) GI: Reports: abdominal pain, nausea, vomiting and constipation; Denies: hematochezia or melena Meds/Allergies Home Medications and Allergies Home Medications Medication Instructions Recorded Confirmed Last Taken Type 1 tab PO DAILY@2100 12/23/20 01/28/21 01/14/21 16:00 History promethazine 25 mg PO Q6H PRN 01/28/21 01/28/21 Unknown History sertraline 25 mg PO DAILY 01/28/21 01/28/21 01/27/21 History Allergies Allergy/AdvReac Type Severity Reaction Status Date / Time Penicillins Allergy Severe Rash Verified 11/19/20 16:58 Current Medications Current Medications Generic Name Dose Route Start Last Admin Trade Name Freq PRN Reason Stop Dose Admin Sodium Chloride 1,000 mls @ 200 mls/hr 01/28/21 21:00 01/29/21 01:56 Sodium Chloride 0.9% IV 200 mls/hr .Q5H BLAKE Administration Metoclopramide HCl 10 mg 01/28/21 20:35 01/29/21 02:40 Metoclopramide 10 Mg Tablet PO 10 mg Q6H PRN Administration Nausea and Vomiting, Severe Sertraline HCl 25 mg 01/28/21 21:00 01/28/21 20:15 Sertraline 50 Mg Tablet PO 25 mg BEDTIME BLAKE Administration PFSH Acute PFSH: Medical History ADD (attention deficit disorder) Anxiety and depression Environmental and seasonal allergies Migraine no aura-- med change for ADD correccted this No pertinent past medical history neghx: htn,dm,thyroid,dvt/pe PCP: Enio Bhakta Surgical History No history of previous surgery Family History Grandmother Hypertension Maternal and Paternal Ovarian cancer Maternal--dx age late 20's Grandfather Hypertension Maternal and Paternal Family/Other Ovarian cancer Maternal Great Grandmother--dx age 60's Denies family history of Colon cancer Diabetes Heart disease Hypercholesteremia Breast cancer Uterine cancer Thyroid disease Stroke Female Reproductive History: Date of last menstrual period: 11/05/20 Vitals/I&O/Wt Last Vital Signs Temp 98.1 F 01/29/21 04:56 Pulse 78 01/29/21 04:56 Resp 16 01/29/21 04:56 BP 81/54 01/29/21 04:56 Pulse Ox 99 01/29/21 04:56 01/28/21 01/29/21 01/29/21 22:59 06:59 14:59 Intake Total 1999 / 3105 1105 / 3105 Output Total 350 / 350 Balance 1999 / 2755 755 / 2755 Weight last 48 hrs Weight 113 lb Weight 113 lb Physical Exam Narrative: EXAM NARRATIVE: The patient was encountered in her hospital room. She does not appear to be in any distress. The pupils are equal. No neck masses are palpated. The chest is clear anteriorly. The heart is regular. The abdomen reveals some bowel sounds and is soft. She has no appreciable tenderness across the upper abdomen and Guzman's sign is clearly negative. She has some mild tenderness in the lower midline. No obvious masses are palpated. The extremities reveal no edema. Neurologically the patient appears to be grossly intact. Data Labs: Other Labs: Laboratory Tests 01/29/21 07:10 Total Bilirubin 0.9 Alkaline Phosphata se 41 Amylase 84 A&P Assessment and plan (1) Elevated LFTs: The patient's LFTs are already better this morning. Still awaiting the official ultrasound reading. The patient's gallbladder appears a little distended to me, but I don't see any obvious stones. While sludge is a possibility, she does not seem to have any convincing evidence/history of definite biliary colic. I think this may be more hyperemesis gravidarum. I will continue following with you. Status: Acute (2) Nausea & vomiting: Status: Acute Consult Attestations Medical Necessity Statement: See admitting service's notation. 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
[2021-01-29 07:42] LABS: Basophils % 0.4 %; Eosinophils % 0.6 %; Hematocrit 30.1 % (37.0-47.0); Hemoglobin 10.4 g/dL (11.5-15.3); Lymphocytes # 1.5 10^3/uL (0.8-4.8); Lymphocytes % 28.4 %; Mean Corpuscular HGB Conc 34.6 g/dL (30.0-36.0); Mean Corpuscular Hemoglobin 28.9 pg (28.0-34.0); Mean Corpuscular Volume 83.6 fL (81-99); Mean Platelet Volume 12.3 fL (7.4-10.4); Monocytes # 0.6 10^3/uL (0.2-0.9); Monocytes % 11.3 %; Neutrophils # 3.21 10^3/uL (1.8-7.7); Neutrophils % 59.1 %; Nucleated Red Blood Cells % 0 %; Platelet Count 141 10^3/cmm (130-400); Red Cell Distribution Width 13.3 % (12.1-15.1); White Blood Count 5.4 10^3/uL (4.0-10.0)
[2021-01-29 08:00] VITALS: BP 98/63; PULSE 85; RESP 16; TEMP 36.8; O2SAT 99
[2021-01-29 08:16] LABS: Alanine Aminotransferase 124 U/L (0-33); Albumin Level 3.1 g/dL (3.5-5.2); Alkaline Phosphatase 41 IU/L (35-105); Amylase 84 U/L (28-100); Aspartate Amino Transferase 41 U/L (0-32); Total Bilirubin 0.9 mg/dL (0.15-1.2); Total Protein 5.1 g/dL (6.6-8.7)
--- NOTE | 2021-01-29 09:21 | PC.NURSE ---
FHT doppled at 150.
[2021-01-29 12:00] VITALS: BP 107/70; PULSE 89; RESP 16; TEMP 36.7; O2SAT 99
[2021-01-29 16:00] VITALS: BP 99/69; PULSE 94; RESP 16; TEMP 36.7; O2SAT 100
[2021-01-29] MEDS: sodium chloride 0.9% 1,000 ML 20 ML IV (18:41)
[2021-01-29 20:00] VITALS: BP 94/60; PULSE 89; RESP 18; TEMP 37; O2SAT 99
--- NOTE | 2021-01-29 20:00 | PC.NURSE ---
FHT doppled at 150.
[2021-01-29] MEDS: sertraline 50 mg Tablet 25 MG PO (21:11)
[2021-01-30] VITALS: BP 90/53; PULSE 80; RESP 17; O2SAT 98
[2021-01-30] MEDS: sodium chloride 0.9% 1,000 ML 200 ML IV ×2 (00:14→05:17)
[2021-01-30 04:00] VITALS: BP 84/46; PULSE 88; RESP 17; O2SAT 98
[2021-01-30 05:04] VITALS: TEMP 36.9
--- NOTE | 2021-01-30 06:41 | P.PN_ITS ---
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 She still only ate about 25% of her dinner and less than that of her lunch yesterday. This morning she is complaining of pain under her umbilicus that extends into her lower back. She also is complaining of some pain just posterior to her mid axillary line in her left thoracic area. She has not had anything to eat yet this morning. She continues to have a flat affect. She has not had any diarrhea. Vitals/I&O/Wt Last Vital Signs Temp 98.4 F 01/30/21 05:04 Pulse 88 01/30/21 04:00 Resp 17 01/30/21 04:00 BP 84/46 01/30/21 04:00 Pulse Ox 98 01/30/21 04:00 01/29/21 01/29/21 01/30/21 14:59 22:59 06:59 Intake Total 1100 / 1100 566.333 / 8193.164 4129.667 / 3683.000 Output Total 600 / 600 1200 / 1800 500 / 2300 Balance 500 / 500 -633.667 / -351.658 5883.667 / 1383.000 Weight last 48 hrs Weight 117 lb 8 oz Weight 113 lb Weight 113 lb Physical Exam Const: COMMON NORMALS: patient oriented x3 and alert HENMT: HEAD & SCALP: normal to inspection Chest: COMMONS NORMALS: normal inspection of the chest Resp: COMMON NORMALS: clear to auscultation bilaterally AUSCULTATION: clear to auscultation bilaterally Cardio: COMMON NORMALS: regular rate and regular rhythm RATE: regular rate RHYTHM: regular rhythm GI: INSPECTION: Yes normal to inspection Extremity: COMMON NORMALS: normal to inspection GENERAL: Yes edema (Trace) Neuro: COMMON NORMALS: patient oriented x3, moves all extremities and no sensory deficits noted SENSORIUM/ORIENTATION: Yes alert Psych: COMMON NORMALS: mental status grossly normal; negative for normal affect (Flat affect) Skin: COMMON NORMALS: no rashes or lesions noted GENERAL SKIN EXAM: no rashes or lesions noted Data : 01/29/21 07:10 01/29/21 04:50 A&P Assessment and plan (1) Nausea & vomiting: She appears to be responding well to Reglan. We will continue the Reglan at this time. Status: Acute (2) Elevated LFTs: They had improved as of yesterday. We will recheck these again today to see if they are continuing their progress. Status: Acute (3) Abnormal urinalysis: We are waiting for urine culture. In the meantime I am empirically treating her for urinary tract infection Status: Acute (4) Hyponatremia: Improved with IV fluids. We will see how she responds now that she has had much less IV fluids over the last 24 hours Status: Acute (5) Hypokalemia: We will recheck potassium this morning. She has not had any replacement for last 24 hours. Status: Acute (6) Hypoalbuminemia: We are continuing to encourage her to eat. Status: Acute (7) First trimester : heart tones were obtained every shift. Status: Acute (8) Dehydration during : Improved, but the patient still is not drinking adequately. Status: Acute (9) Weight loss of more than 10% body weight: Status: Acute (10) Gallbladder sludge: Dr. Yun evaluated the patient yesterday. At this time is unlikely that this is a major player in this patient's symptoms. Status: Acute Attestations Medical Necessity Statement*: The patient continues not to have adequate oral intake. We will continue to monitor her, and encourage her to eat while tr eating her nausea and any other problems that may present themselves. I Anticipate she will not be going home for at least another 24 hours and possibly more depending on how she responds. Coding Level of Care Code Acute [place] for Carl Mendez Diagnoses Nausea & vomiting R11.2 Elevated LFTs R79.89 Abnormal urinalysis R82.90 Hyponatremia E87.1 Hypokalemia E87.6 Hypoalbuminemia E88.09 First trimester Z34.91 Dehydration during O26.899; E86.0 Weight loss of more than 10% body weight R63.4 Gallbladder sludge K82.8
--- NOTE | 2021-01-30 06:53 | PM.PN ---
Subjective Subjective: Interval history: The patient says she is feeling better. Her nausea and vomiting are improved. She is eating and drinking a little bit. Her abdominal pain, although not completely gone, is also improved. Vitals/I&O/Wt Last Vital Signs Temp 98.4 F 01/30/21 05:04 Pulse 88 01/30/21 04:00 Resp 17 01/30/21 04:00 BP 84/46 01/30/21 04:00 Pulse Ox 98 01/30/21 04:00 01/29/21 01/29/21 01/30/21 14:59 22:59 06:59 Intake Total 1100 / 3683.000 566.333 / 3683.000 2016.667 / 3683.000 Output Total 600 / 2300 1200 / 2300 500 / 2300 Balance 500 / 1383.000 -633.667 / 0715.193 6784.667 / 1383.000 Weight last 48 hrs Weight 117 lb 8 oz Weight 113 lb Weight 113 lb Physical Exam Narrative: EXAM NARRATIVE: I cannot appreciate any significant tenderness on exam today. Data : 01/29/21 07:10 01/29/21 04:50 A&P Assessment and plan (1) Nausea & vomiting: Improved. Status: Acute (2) Elevated LFTs: Already improved as of yesterday. No new values seen today. Status: Acute (3) Gallbladder sludge: The patient is known to have some sludge in her gallbladder by ultrasound, but I do not think she is experiencing any obvious symptoms of biliary colic at this time. Status: Acute (4) Hyperemesis gravidarum: Status: Acute Attestations Medical Necessity Statement*: See admitting service's notation. Coding Level of Care Code Acute Roll Coverer for [facility] Fwd Diagnoses Nausea & vomiting R11.2 Elevated LFTs R79.89 Gallbladder sludge K82.8 Hyperemesis gravidarum O21.0
[2021-01-30] MEDS: cefTRIAXone 1,000 MG in sodium chloride 0.9% (plus) 50 ML 100 MG IV (09:44)
[2021-01-30] MEDS: metoclopramide 10 mg Tablet PO (11:10)
[2021-01-30 16:50] VITALS: BP 95/60; PULSE 91; RESP 16; TEMP 36.7
[2021-01-30 17:08] LABS: Basophils % 0.5 %; Eosinophils % 0.7 %; Hematocrit 32.9 % (37.0-47.0); Hemoglobin 11.9 g/dL (11.5-15.3); Lymphocytes # 1.3 10^3/uL (0.8-4.8); Lymphocytes % 28.6 %; Mean Corpuscular HGB Conc 36.2 g/dL (30.0-36.0); Mean Corpuscular Hemoglobin 29.1 pg (28.0-34.0); Mean Corpuscular Volume 80.4 fL (81-99); Mean Platelet Volume 11.9 fL (7.4-10.4); Monocytes # 0.5 10^3/uL (0.2-0.9); Monocytes % 10.5 %; Neutrophils % 59.5 %; Nucleated Red Blood Cells % 0 %; Platelet Count 148 10^3/cmm (130-400); Red Blood Count 4.09 10^6/uL (4.1-5.3); White Blood Count 4.4 10^3/uL (4.0-10.0)
[2021-01-30 17:35] LABS: Alanine Aminotransferase 101 U/L (0-33); Albumin Level 3.1 g/dL (3.5-5.2); Alkaline Phosphatase 46 IU/L (35-105); Anion Gap 14.7 (5-19); Aspartate Amino Transferase 39 U/L (0-32); Calcium 8.3 mg/dL (8.5-10.5); Carbon Dioxide 19 mmol/L (22-29); Chloride 104 mmol/L (98-107); Globulin 2.1 g/dL (1.3-4.6); Glomerular Filtration Rate 436.4 mL/min (90-130); Glucose 112 mg/dL (65-115); Sodium 135 mmol/L (136-145); Total Bilirubin 0.8 mg/dL (0.15-1.2); Total Protein 5.2 g/dL (6.6-8.7)
[2021-01-30 18:19] LABS: Blood Urea Nitrogen 1 mg/dL (6-20); Osmolality Calculated 277 mOsm/kg (285-295); Potassium 2.7 mmol/L (3.5-5.1)
[2021-01-30] MEDS: metoclopramide 5 mg/mL SDV 2 mL 10 MG IVP (18:44)
[2021-01-30] MEDS: famotidine 20 mg Tablet PO (18:44)
[2021-01-30] MEDS: lidocaine 1% 5 ML in potassium chloride premix 100 ML 17.5 ML IV (19:39)
[2021-01-30 20:53] VITALS: BP 106/72; PULSE 95; RESP 16; TEMP 36.7; O2SAT 98
--- NOTE | 2021-01-30 20:58 | PC.NURSE ---
FHT auscultated 160's by this RN. AR RN
[2021-01-30] MEDS: sertraline 50 mg Tablet 25 MG PO (21:11)
[2021-01-31] MEDS: metoclopramide 10 mg Tablet PO ×4 (00:48→21:16)
[2021-01-31] MEDS: lidocaine 1% 5 ML in potassium chloride premix 100 ML 17.5 ML IV (01:37)
[2021-01-31 04:00] VITALS: BP 88/54; PULSE 91; RESP 17; TEMP 37; O2SAT 97
--- NOTE | 2021-01-31 06:37 | P.PN_ITS ---
Subjective Subjective: Interval history: The patient says that she continues to do fairly well. She said she had 1 small episode of emesis yesterday when I got emotional because my fianc? was leaving. She otherwise says she is eating better, etc. She denies any abdominal pain. She says she has had a normal bowel movement. Vitals/I&O/Wt Last Vital Signs Temp 98.6 F 01/31/21 04:00 Pulse 91 01/31/21 04:00 Resp 17 01/31/21 04:00 BP 88/54 01/31/21 04:00 Pulse Ox 97 01/31/21 04:00 01/30/21 01/30/21 01/31/21 14:59 22:59 06:59 Intake Total 162.333 / 1058.417 791.667 / 1058.417 104.417 / 1058.417 Output Total 1375 / 2075 700 / 2075 Balance -1212.667 / -1016.583 91.667 / -1016.583 104.417 / -1016.583 Weight last 48 hrs Weight 119 lb Weight 117 lb 8 oz Physical Exam Narrative: EXAM NARRATIVE: Upper abdominal quadrants remain nontender to palpation. Data : 01/30/21 16:50 01/30/21 16:50 Other Labs: Laboratory Tests 01/30/21 16:50 Total Bilirubin 0.8 AST 39 H ALT 101 H Alkaline Phosphatase 46 A&P Assessment and plan (1) Nausea & vomiting: Improved. Potassium being replaced. Status: Acute (2) Elevated LFTs: LFTs continue to improve. Status: Acute (3) Gallbladder sludge: The patient is known to have some sludge in her gallbladder by ultrasound, but I do not think she is experiencing any obvious symptoms of biliary colic at this time. I will continue to be available if needed, but may not continue to see daily. Please call if I can be of further assistance. Status: Acute (4) Hyperemesis gravidarum: Status: Acute Attestations Medical Necessity Statement*: See admitting service's notation. Coding Level of Care Code Acute Yarder Boss for [facility] Andrea Diagnoses Nausea & vomiting R11.2 Elevated LFTs R79.89 Gallbladder sludge K82.8 Hyperemesis gravidarum O21.0
--- NOTE | 2021-01-31 06:52 | PM.OBGYPN ---
BAR STAFF Subjective Subjective: Interval history: The patient continues to have minimal p.o. intake. I discussed the case with her mother who seems to have a big impact on the patient's actions. It also appears that when we begin to put too much pressure on her to eat more that she starts becoming anxious, and yesterday she had episode of chest pain after the nurses were trying to influence her to eat. She has had a very flat affect, and has been hard hello how much she understands or is influenced by our discussions. Vitals/I&O/Wt Last Vital Signs Temp 98.6 F 01/31/21 04:00 Pulse 91 01/31/21 04:00 Resp 17 01/31/21 04:00 BP 88/54 01/31/21 04:00 Pulse Ox 97 01/31/21 04:00 01/30/21 01/30/21 01/31/21 14:59 22:59 06:59 Intake Total 162.333 / 162.333 791.667 / 954.000 104.417 / 1058.417 Output Total 1375 / 1375 700 / 2075 Balance -1212.667 / -1212.667 91.667 / -1121.000 104.417 / -1016.583 Weight last 48 hrs Weight 119 lb Weight 117 lb 8 oz Physical Exam Narrative: EXAM NARRATIVE: The patient is alert and oriented. She continues to have a very flat affect. Her lungs are clear to auscultation bilaterally. Her heart is regular rate and rhythm with no murmurs rubs or gallops Her abdomen is nondistended and nontender. Her bowel sounds are positive. She appears appropriately hydrated at this time. Data : 01/30/21 16:50 02/01/21 07:35 A&P Assessment and plan (1) Hypokalemia: We replaced 80 mEq of potassium over 12 hours. We will recheck her potassium today. Status: Acute (2) Anorexia: Status: Acute (3) Nausea & vomiting: Status: Acute (4) Elevated LFTs: Status: Acute (5) Abnormal urinalysis: Status: Acute (6) Nausea/vomiting in : Status: Acute (7) First trimester : Status: Acute (8) Dehydration during : Status: Acute (9) Anxiety and depression: I have consulted psychiatry to see if they have other ideas on approach her. We have started her on fluoxetine a little over a week ago, I am going to increase her dose Status: Chronic Attestations Medical Necessity Statement*: I anticipate the patient will be here for at least 48 hours. Possibly longer depending on how soon she is able to actually have better intake and not have any nausea vomiting. Coding Level of Care Code Acute Lead Software Development Engineer for Carl Fwd Diagnoses Hypokalemia E87.6 Anorexia R63.0 Nausea & vomiting R11.2 Elevated LFTs R79.89 Abnormal urinalysis R82.90 Nausea/vomiting in O21.9 First trimester Z34.91 Dehydration during O26.899; E86.0 Anxiety and depression F41.9; F32.9
[2021-01-31 07:49] VITALS: BMI 21.9
[2021-01-31] MEDS: cefTRIAXone 1,000 MG in sodium chloride 0.9% (plus) 50 ML 100 MG IV (08:38)
[2021-01-31] MEDS: famotidine 20 mg Tablet PO ×2 (08:38→19:38)
[2021-01-31 08:46] VITALS: BP 92/62; PULSE 97; RESP 16; TEMP 36.7; O2SAT 98
--- NOTE | 2021-01-31 10:18 | PC.NURSE ---
IV STARTED IN LEFT WRIST FOR LAB DRAWN USED #20 JELCO SO THIS ROLL COATING MACHINE OPERATOR JUST LEFT IV IN SO THAT WE CAN PERHAPS DRAW FUTURE LABS OFF THIS SITE.
--- NOTE | 2021-01-31 10:20 | PC.NURSE ---
DR. GOETZ IN WITH PATIENT CURRENTLY.
[2021-01-31 10:38] LABS: Alanine Aminotransferase 93 U/L (0-33); Albumin Level 3.2 g/dL (3.5-5.2); Alkaline Phosphatase 45 IU/L (35-105); Aspartate Amino Transferase 34 U/L (0-32); Blood Urea Nitrogen 2 mg/dL (6-20); Calcium 8.4 mg/dL (8.5-10.5); Carbon Dioxide 20 mmol/L (22-29); Chloride 104 mmol/L (98-107); Globulin 2.1 g/dL (1.3-4.6); Glomerular Filtration Rate 436.4 mL/min (90-130); Glucose 100 mg/dL (65-115); Osmolality Calculated 272 mOsm/kg (285-295); Sodium 133 mmol/L (136-145); Total Bilirubin 0.8 mg/dL (0.15-1.2); Total Protein 5.3 g/dL (6.6-8.7)
[2021-01-31 10:40] LABS: Anion Gap 12.5 (5-19); Potassium 3.5 mmol/L (3.5-5.1)
[2021-01-31 11:55] VITALS: BP 97/65; PULSE 97; RESP 16; TEMP 36.7
--- NOTE | 2021-01-31 12:00 | PM.PSYCN ---
Providers/Reason for Consult Consulting Physican/Specialty*: Cynthia Woodson DO Reason for Consult*: Anxiety Attending Physician: Viktor Deleon MD Primary Care Provider: GHASSAN Rainey-Ankush Psych Consult HPI History of Present Illness Lavern Vera is a 25 year old female with history of ADHD presented to the emergency department with weight loss in the context of hyperemesis gravidarum. Patient was noted to have a 20 pound weight loss with ongoing concerns about decreased by mouth intake. Psychiatry consulted for evaluation, recommendations for treating her anxiety symptoms. Patient denies any past psychiatric history other than ADHD, denies any history of anxiety or depressive symptoms; denies any history of psychiatric hospitalizations; denies any history of self-harm behavior or suicide attempts. She currently denies any suicidal ideation. Patient states that she had no prior anxiety symptoms until after . She reports that she first started experiencing anxiety symptoms after an episode of emesis which she states she felt shaky and trembling. She reports that the symptoms lasted for a few minutes until her episode of emesis. She denies any consistent, daily, sustained excessive worry or difficulty controlling her worrying. She denies any racing thoughts. She initially denies any panic symptoms although she recalled having some panic symptoms the day before with chest tightness in the context of a situation in which several individuals were bringing attention to the fact that she had not been eating or trying to eat. She denies any past history of panic attacks. She denies any past major depressive episodes and currently denies any depressive symptoms. When confronted with the fact that her affect appeared to be fairly flat, patient stated that she feels exhausted although she has difficulty describing her sleep history. She does not recall what time she typically has been falling asleep or what time she wakes up. She denies any recent stressors, no relationship issues, reports that the is wanted and that she has an extremely supportive family and fianc?. She reports previously being treated with stimulant medication for ADHD but had stopped this medication at the time that she learned that she was . She denies any past treatment for anxiety or depression with medication or counseling. Patient reports being compliant with her current dosage of sertraline and denies any medication side effects. Review of Systems General: Reports: 10 or more systems reviewed and unremarkable except in HPI and below Meds Current Medications: Current Medications Generic Name Dose Route Start Last Admin Trade Name Freq PRN Reason Stop Dose Admin Famotidine 20 mg 01/30/21 18:00 01/31/21 08:38 Famotidine 20 Mg Tablet PO 20 mg BID BLAKE Administration Sodium Chloride 1,000 mls @ 200 m ls/hr 01/28/21 21:00 01/30/21 19:05 Sodium Chloride 0.9% IV 0 mls/hr .Q5H BLAKE Infusion Ceftriaxone Sodium 1,000 mg/ 50 mls @ 100 mls/ hr 01/30/21 09:00 01/31/21 10:53 Sodium Chloride IV Infused Q24H BLAKE Infusion Protocol Metoclopramide HCl 10 mg 01/28/21 19:42 01/30/21 18:44 Metoclopramide 5 Mg/Ml Sdv 2 Ml IVP 10 mg Q6H PRN Administration NAUSEA AND VOMITI NG PFSH NPU PFSH: Medical History ADD (attention deficit disorder) Anxiety and depression Environmental and seasonal allergies Migraine no aura-- med change for ADD correccted this No pertinent past medical history neghx: htn,dm,thyroid,dvt/pe PCP: Enio Bhakta Surgical History No history of previous surgery Family History Grandmother Hypertension Maternal and Paternal Ovarian cancer Maternal--dx age late 20's Grandfather Hypertension Maternal and Paternal Family/Other Ovarian cancer Maternal Great Grandmother--dx age 60's Denies family history of Colon cancer Diabetes Heart disease Hypercholesteremia Breast cancer Uterine cancer Thyroid disease Stroke Other Psychiatric History: Other Psychiatric History: History of ADHD Denies any history of psychiatric hospitalizations Denies any history of suicide attempt or self-harm behavior Mental Status Exam MSE Comments: Appears exhausted, somewhat unkempt, wearing a hospital gown, calm, cooperative, interactive, good eye contact Psychomotor activity is somewhat decreased, no agitation Speech is low volume, spontaneous, clear articulation, not pressured I feel exhausted, congruent, flat affect, not labile Alert and oriented to person, place, time, situation Intellectual functioning appears to be average based on vocabulary, interview Memory and concentration appear to be intact per interview Thought process, linear but brief, no flight of ideas, no looseness of associations Thought content, no delusions, no hallucinations, no suicidal or homicidal ideation Insight and judgment appear to be intact Vitals/I&O/Wt Last Vital Signs Temp 98.0 F 01/31/21 11:55 Pulse 97 01/31/21 11:55 Resp 16 01/31/21 11:55 BP 97/65 01/31/21 11:55 Pulse Ox 98 01/31/21 08:46 01/30/21 01/31/21 01/31/21 22:59 06:59 14:59 Intake Total 791.667 / 954.000 104.417 / 1058.417 50 / 50 Output Total 700 / 2075 400 / 400 Balance 91.667 / -1121.000 104.417 / -1016.583 -350 / -350 Weight last 48 hrs Weight 52.617 kg Weight 53.977 kg Weight 53.297 kg A&P Assessment and plan (1) Anxiety disorder, unspecified: Status: Acute Additional A&P Information Patient appears to be communicating anticipatory anxiety related to prior episodes of emesis. She denies any generalized anxiety and denies any history of sustained anxiety symptoms prior to her first episode of emesis. She denies any other mood symptoms, denies any suicidal ideation. Patient's anxiety symptoms appear to cause significant impairment in function to include anticipation of future episodes of emesis. Patient has been appropriately started on low-dose antidepressant targeting anxiety symptoms and would likely benefit from slow upward titration of sertraline. She does not appear to pose an imminent threat of harm to self or others. Inpatient psychiatric hospitalization is not indicated; after medical stabilization, outpatient medication management, counseling/therapy targeting anxiety symptoms would be the least restrictive level of care RECOMMEND continuation of sertraline 50 mg daily with plan to continue upward titration targeting anxiety symptoms Psychiatry will continue to follow during this hospitalization. Attestations NPU Medical Necessity Statement*: Patient continues to require hospitalization for medical stabilization. Time Spent in Patient Care: Greater than 35 minutes (>than 50% of time spent in counselling and/or direct pt care on unit). Coding Level of Care Code Acute Roads And Parking Lots Sweeper Operator for Carl Mendez Diagnoses Anxiety disorder, unspecified F41.9
[2021-01-31 15:39] VITALS: BP 84/62; PULSE 97; RESP 14; TEMP 36.9; O2SAT 98
--- NOTE | 2021-01-31 18:02 | PC.NURSE ---
Patient reported eating 2 mozzarella sticks and a few fries. Patient also ate about 2/3 of a banana.
[2021-01-31 19:42] VITALS: BP 88/59; PULSE 99; RESP 15; TEMP 36.8; O2SAT 99
--- NOTE | 2021-01-31 19:47 | PC.NURSE ---
FHTs dopplered in the 160s at this time.
[2021-01-31] MEDS: sertraline 50 mg Tablet PO (21:16)
[2021-02-01 01:10] VITALS: BP 95/59; PULSE 80; RESP 15; TEMP 36.8; O2SAT 98
[2021-02-01 05:00] VITALS: BP 85/51; PULSE 86; RESP 15; TEMP 36.6; TEMP 36.7; O2SAT 98
--- NOTE | 2021-02-01 07:15 | PM.OBGYPN ---
ELECTRONIC INDUSTRIAL CONTROLS MECHANIC Subjective Subjective: Interval history: The patient has been doing much better overall. She ate a much greater volume of her food yesterday. She had a full banana. She drank a full can of boost. She also had some fries and some other things as well. She is also making a better effort to drink more as well. Vitals/I&O/Wt Last Vital Signs Temp 98.0 F 02/01/21 05:00 Pulse 86 02/01/21 05:00 Resp 15 02/01/21 05:00 BP 85/51 02/01/21 05:00 Pulse Ox 98 02/01/21 05:00 01/31/21 02/01/21 02/01/21 22:59 06:59 14:59 Intake Total 355 / 705 400 / 1105 Output Total 800 / 1300 300 / 1600 Balance -445 / -595 100 / -495 Weight last 48 hrs Weight 118 lb Weight 116 lb Weight 119 lb Physical Exam Narrative: EXAM NARRATIVE: The patient is alert. She appears comfortable. Her heart has a regular rate and rhythm with no murmurs appreciated. Lungs are clear to auscultation bilaterally. Her abdomen is nontender. It is not distended. Her bowel sounds are positive and within normal limits. Data : 01/30/21 16:50 01/31/21 10:10 A&P Assessment and plan (1) Anxiety disorder, unspecified: We will continue sertraline at 50 mg daily. Psychiatry was consulted and they concur. She continues have a very flat affect which makes it difficult to interpret how she is responding to our instruction and encouragement. Status: Acute (2) Anorexia: We will continue to encourage her to eat more. Today will be a watershed day for us. If she continues to improve, will consider discharge home this evening or tomorrow. If she regresses again, I will consult dietary we will discuss further options. I am not ready to initiate an NG tube at this time, but her drive to eat has been remarkably poor. Status: Acute (3) Nausea & vomiting: At this time the benefits of continuing Reglan continue to outweigh the risks. Status: Acute (4) Elevated LFTs: Gradually improving. Will check a CMP again today. Status: Acute (5) Hyponatremia: Status: Acute (6) Hypokalemia: We will recheck her metabolic panel today. There have been no replacement of potassium since her last metabolic panel. I am hesitant to start her on oral potassium since she tends to gag with some medications, and the biggest issue on the table at this point is her lack of p.o. intake. Status: Acute (7) First trimester : Status: Acute Attestations Medical Necessity Statement*: The patient was finally able to have a reasonable intake yesterday. It is still questionable whether or not her caloric intake was adequate, and the intake only occurred after most coaxing from the nurses as well as her family. I am hopeful that she will have an even better day today. If she has a really good morning we might build to consider discharge this evening or tomorrow. Coding Level of Care Code Acute Range Examiner for Carl Packerd Diagnoses Anxiety disorder, unspecified F41.9 Anorexia R63.0 Nausea & vomiting R11.2 Elevated LFTs R79.89 Hyponatremia E87.1 Hypokalemia E87.6 First trimester Z34.91
[2021-02-01 08:00] VITALS: BP 98/61; PULSE 86; RESP 18; TEMP 36.9; O2SAT 98
[2021-02-01 08:17] LABS: Alanine Aminotransferase 81 U/L (0-33); Albumin Level 3.2 g/dL (3.5-5.2); Alkaline Phosphatase 48 IU/L (35-105); Aspartate Amino Transferase 27 U/L (0-32); Blood Urea Nitrogen 2 mg/dL (6-20); Calcium 8.5 mg/dL (8.5-10.5); Carbon Dioxide 23 mmol/L (22-29); Chloride 106 mmol/L (98-107); Globulin 2.4 g/dL (1.3-4.6); Glomerular Filtration Rate 273.3 mL/min (90-130); Glucose 97 mg/dL (65-115); Osmolality Calculated 276 mOsm/kg (285-295); Sodium 135 mmol/L (136-145); Total Bilirubin 0.7 mg/dL (0.15-1.2); Total Protein 5.6 g/dL (6.6-8.7)
[2021-02-01 12:00] VITALS: BP 96/63; PULSE 86; RESP 18; TEMP 36.7; O2SAT 98
--- NOTE | 2021-02-01 12:37 | PC.NURSE ---
PT UP TO TAKE A SHOWER, IV REMOVED PRIOR TO SHOWER. BED LINENS CHANGED. PT ATE HALF A HAM AND CHEESE SANDWICH AND IS EATING A BLIZZARD FROM . SHE HAD A ENSURE WITH ICE CREAM AND A BANANA FOR BREAKFAST. DENIES NAUSEA.
[2021-02-01] MEDS: metoclopramide 10 mg Tablet PO (12:47)
[2021-02-01] MEDS: famotidine 20 mg Tablet PO (12:47)
[2021-02-01 17:35] VITALS: BP 99/66; PULSE 89; RESP 18; TEMP 36.8; O2SAT 98
[2021-02-01 17:47] VITALS: BP 99/66; PULSE 89; RESP 18; TEMP 36.8; O2SAT 98
--- NOTE | 2021-02-07 08:04 | PM.DCS ---
Discharge Providers Date of Admission: 01/29/21 15:00 Date of Discharge: February 07, 2021 Attending Provider at Admission: Viktor Deleon MD Attending Provider at Discharge: Viktor Deleon MD Primary Care Provider: SHON Rainey Diagnoses at Discharge Discharge Diagnosis (1) Hypokalemia: Status: Acute (2) Anorexia: Status: Acute (3) Nausea & vomiting: Status: Acute (4) Elevated LFTs: Status: Acute (5) Abnormal urinalysis: Status: Acute (6) Nausea/vomiting in : Status: Acute (7) First trimester : Status: Acute (8) Dehydration during : Status: Acute (9) Anxiety and depression: Status: Chronic Reason for Visit Reason for Visit: dehydration Hospital Course Hospital Course The patient presented to the hospital due to abnormal weight loss and persistent nausea vomiting. After be admitted, we placed her on Reglan. While her nausea and vomiting did improve, she was still not eating adequately. We have multiple discussions with the patient as well as her fianc? and her mother who appeared to have been major players and how she functions and what she does. Gradually over the course of her hospital stay, we were able to get her to eat better, and she appeared to do well on Reglan overall. Physical Exam Narrative: EXAM NARRATIVE: The patient was alert and oriented. She has a somewhat flat affect. Her has a regular rate and rhythm with no murmurs rubs or gallops. Her lungs are clear to auscultation bilaterally. Her abdomen was non distended. She had mild tenderness. Her bowel sounds are positive. Const: COMMON NORMALS: patient oriented x3 and alert HENMT: COMMON NORMALS: moist oral mucous membranes HEAD & SCALP: normal to inspection Chest: COMMONS NORMALS: normal inspection of the chest Resp: COMMON NORMALS: clear to auscultation bilaterally AUSCULTATION: clear to auscultation bilaterally Cardio: COMMON NORMALS: regular rate and regular rhythm RATE: regular rate RHYTHM: regular rhythm GI: INSPECTION: Yes normal to inspection and Yes other (Gravid) Extremity: COMMON NORMALS: normal to inspection GENERAL: Yes edema (Trace) Neuro: COMMON NORMALS: patient oriented x3, moves all extremities and no sensory deficits noted SENSORIUM/ORIENTATION: Yes alert Psych: COMMON NORMALS: mental status grossly normal Skin: COMMON NORMALS: no rashes or lesions noted GENERAL SKIN EXAM: no rashes or lesions noted Discharge Data Data Completed and Pending: Completed Studies During Hospitalization Category Date Time Status US OB <= 14 weeks fetus 48629 Stat Ultrasound 01/28/21 19:48 Completed US gall bladder 7 6705 Stat Ultrasound 01/28/21 19:40 Completed Addt'l Data from Hospital Stay: Her complete blood count was relatively unremarkable. Her hemoglobin did go from 15.2 initially down to 10.4 with dilution. Before discharge her hemoglobin 11.9. Her platelets remained within normal limits. 3 out of her 4 white blood counts were within normal limits. Her potassium initially was 4.4, and then decreased to the momo of 2.7 prior to being giving potassium supplementation. Vitals: Last Vital Signs Temp 98.3 F 02/01/21 17:47 Pulse 89 02/01/21 17:47 Resp 18 02/01/21 17:47 BP 99/66 02/01/21 17:47 Pulse Ox 98 02/01/21 17:47 Discharge Plan Discharge Patient Disposition: Home Condition: Stable Prescriptions: Continued 1 tab PO DAILY@2100 RF: 0 promethazine 25 mg Tablet 25 mg PO Q6H PRN (Reason: nausea/vomiting) RF: 0 sertraline 25 mg Tablet 25 mg PO DAILY RF: 0 Discharge Orders: Discharge Order (Routine); Ordered 02/01/21 Ordered By: Viktor Deleon Referrals: Viktor Deleon MD [Physician] - 02/06/21 1:45 pm Discharge Diet: Advance as tolerated Discharge Activity: Resume usual activity Patient Instructions: [place] Diet - Adult, Hyperemesis Gravidarum, Hyperemesis Gravidarum (GEN), High Protein Diet (GEN), OB Discharge Report Activity Restrictions/Additional Instructions: SCRIPTS FOR REGLAN 10MG TID #90 ZOLOFT 50MG PO DAILY #30 CALLED INTO [facility] BECAUSE [facility] WOULD NOT ANSWER AND I WAS UNABLE TO LEAVE A MESSAGE.. Discharge Attestations Time Spent in Discharge Care*: greater than 30 min Specific Discharge Activities: educating patient and educating and/or supporting family/caregiver Quality Metrics Clinical Quality Measures During this hospital stay, did patient experience: None Coding Level of Care Code Acute Chg FW DC note Diagnoses Hypokalemia E87.6 Anorexia R63.0 Nausea & vomiting R11.2 Elevated LFTs R79.89 Abnormal urinalysis R82.90 Nausea/vomiting in O21.9 First trimester Z34.91 Dehydration during O26.899; E86.0 Anxiety and depression F41.9; F32.9
== END 2021-02-01 17:50 | disposition home or self-care (01) | DRG 832 ==
LOC: ER 18:18 → OBGYN 18:22
PROVIDERS: Surgery; Admitting Provider Family Medicine; Emergency Provider Emergency Medicine; PCP Nurse Practitioner; Visit Provider Family Medicine
DX: O99.341 Other mental disorders complicating pregnancy, first trimester (principal); O23.41 Unspecified infection of urinary tract in pregnancy, first trimester; E87.1 Hypo-osmolality and hyponatremia; F41.8 Other specified anxiety disorders; O21.0 Mild hyperemesis gravidarum; Z3A.12 12 weeks gestation of pregnancy; O26.891 Other specified pregnancy related conditions, first trimester; F98.8 Other specified behavioral and emotional disorders with onset usually occurring in childhood and adolescence; E88.09 Other disorders of plasma-protein metabolism, not elsewhere classified; E86.0 Dehydration; K82.8 Other specified diseases of gallbladder
CPT/HCPCS: 12345; 76705; 76801; 80053; 80076; 82150; 85025; 96374; 96375; 99285; G0378; J0696; J1200; J2765; J3480; J7030; J8597

== ENCOUNTER 2021-07-24 22:07 | Outpatient (CLI) | payer OTHER, MEDICAID, SELFPAY ==
[2021-07-24 22:18] VITALS: BP 147/91; PULSE 69
[2021-07-24 22:47] VITALS: BP 133/89; PULSE 68
[2021-07-24 22:49] VITALS: BP 129/87; PULSE 65
[2021-07-24 23:03] VITALS: BMI 29.2
[2021-07-24 23:17] VITALS: BP 127/89; PULSE 74
[2021-07-24 23:48] VITALS: BP 137/89; PULSE 75
[2021-07-24 23:51] VITALS: TEMP 36.8
[2021-07-25 00:25] VITALS: BP 137/89; PULSE 75; RESP 16
== END 2021-07-25 00:03 | disposition home or self-care (01) ==
LOC: OPOB 22:11 → OBGYN 22:12
PROVIDERS: PCP Nurse Practitioner; Visit Provider Family Medicine
DX: O26.899 Other specified pregnancy related conditions, unspecified trimester (principal); Z3A.00 Weeks of gestation of pregnancy not specified; R10.9 Unspecified abdominal pain
CPT/HCPCS: 59025; 99211

== ENCOUNTER 2021-07-29 11:43 | Inpatient (IN) | payer OTHER, MEDICAID, SELFPAY ==
[2021-07-29] VITALS (59 sets, daily range): BP systolic 108–148; BP diastolic 65–94; PULSE 66–151; RESP 17; TEMP 35.8–36.9; O2SAT 100; BMI 25.7
[2021-07-29 12:23] LABS: Basophils % 0.2 %; Hematocrit 33.5 % (37.0-47.0); Hemoglobin 11.4 g/dL (11.5-15.3); Lymphocytes # 2.1 10^3/uL (0.8-4.8); Lymphocytes % 17.9 %; Mean Corpuscular Hemoglobin 29.5 pg (28.0-34.0); Mean Corpuscular Volume 86.8 fl (81-99); Mean Platelet Volume 12.7 fL (7.4-10.4); Monocytes # 0.9 10^3/uL (0.2-0.9); Monocytes % 7.6 %; Neutrophils # 8.76 10^3/uL (1.8-7.7); Nucleated Red Blood Cells % 0 %; Platelet Count 199 10^3/cmm (130-400); Red Blood Count 3.86 10^6/uL (4.1-5.3); Red Cell Distribution Width 13.6 % (12.1-15.1); White Blood Count 11.8 10^3/uL (4.0-10.0)
[2021-07-29] MEDS: lactated ringers 1,000 ML 999 ML IV ×2 (12:27→13:39)
[2021-07-29] MEDS: oxytocin 30 UNIT/500 ML BAG IV (12:43)
--- NOTE | 2021-07-29 14:18 | P.ANESASSM_ITS ---
Pre-Anesthetic Assessment Pre-Anesthetic Assessment: Height/Weight: Height 1.63 m Weight 68.039 kg Temp Pulse Resp BP Pulse Ox 97.3 F L 73 17 128/87 100 07/29/21 11:54 07/29/21 14:13 07/29/21 11:47 07/29/21 14:13 07/29/21 14:09 Was Beta Edmond taken within 24 hours: N/A Was Clonidine taken within 24 hours: N/A Social: Social History: No alcohol and No tobacco Exam: Pre-Anes Outpt Exam: alert, oriented x 3, clear to auscultation bilaterally and regular rate & rhythm Airway: Submandibular: WNL Cervical ROM: WNL Dentition: Full Neuropsych: Neuropsych: Anxiety and Depression Anesthetic Plan: ASA status: 2 Anesthesia: Regional (specify below) (Labor epidural) Risk of > 500 ml blood loss (7ml/kg in children): No Meds/Allergies Current Medications: Current Medications Generic Name Dose Route Start Last Admin Trade Name Freq PRN Reason Stop Dose Admin Oxytocin 30 unit in 500 ml s @ 1 mls/hr 07/29/21 12:00 07/29/21 12:43 Pitocin IV 2 milliunit/min .Q24H BLAKE 2 mls/hr Administration Protocol 1 MILLIUNIT/MIN Lactated Ringer's 1,000 mls @ 999 m ls/hr 07/29/21 12:17 07/29/21 13:39 Lactated Ringers IV 999 mls/hr .Q1H1M PRN Administration See label comment s PFSH Anesthesia PFSH: Medical History (Updated 07/26/21 @ 00:02 by ) ADD (attention deficit disorder) Anxiety and depression Environmental and seasonal allergies Mental disability Migraine no aura-- med change for ADD correccted this No pertinent past medical history neghx: htn,dm,thyroid,dvt/pe PCP: Enio Bhakta Surgical History No history of previous surgery Family History Grandmother Hypertension Maternal and Paternal Ovarian cancer Maternal--dx age late 20's Grandfather Hypertension Maternal and Paternal Family/Other Ovarian cancer Maternal Great Grandmother--dx age 60's Denies family history of Colon cancer Diabetes Heart disease Hypercholesteremia Breast cancer Uterine cancer Thyroid disease Stroke Social History Smoking and tobacco status: never smoked Second hand smoke exposure: No Smoking risk assessment/counseling performed?: No Alcohol intake: never Desire information about alcohol rehabilitation?: No Counseling given: No Desire information about substance/drug rehabilitation?: No Counseling given: No Adopted: No Caregiver/support person: No Lives independently: Yes Household members: family Housing: House Marital status: Single Number of children: 0 service: No Current occupational exposures/hazards: No Pets and animals: Yes History of recent travel: No Current gender identity: Female Female Reproductive History: Date of last menstrual period: 11/05/20 : 1 Data Anesthesia CBC & Chem 7: 07/29/21 12:05 Other Labs: Laboratory Results - last 48 hr 07/29/21 12:05 WBC 11.8 H RBC 3.86 L Hgb 11.4 L Hct 33.5 L MCV 86.8 MCH 29.5 MCHC 34.0 RDW 13.6 Plt Count 199 MPV 12.7 H Neut % (Auto) 74.0 Lymph % (Auto) 17.9 [place] % (Auto) 7.6 Eos % (Auto) 0.0 Baso % (Auto) 0.2 Neut # (Auto) 8.76 H Lymph # (Auto) 2.1 [place] # (Auto) 0.9 Eos # (Auto) 0.0 Baso # (Auto) 0.0 Nucleated RBC % (auto) 0 Nucleated RBCs # 0.0 Cardiac Studies: No Data to Display
--- NOTE | 2021-07-29 14:19 | ANES.PROC ---
Anesthesia Procedures Procedure/Date: 07/29/21 Epidural: Time Out Performed: No Consents Signed: Procedure Consent Consent: requested by attending/covering physician, from patient, risks and benefits reviewed and patient agrees to proceed Lumbar Level: L3-L4 Epidural position: sitting Epidural procedure: sterile prep of area, 1% lidocaine to numb the area, 18 g needle, neg for paresthesia, test dose given, 1.5% xylocaine 1:200k epi, placed PCEA, no systemic response, sterile dressing applied, L.U.D. no apparent complications and 0.2% Ropiavacaine @ mls/hr (13) Additional Comments: ROB at 4cm, cath at 10cm.
[2021-07-29 17:19] LABS: Amphetamines Screen Urine Negative (Negative); Barbiturates Screen Urine Negative (Negative); Benzodiazepines Screen Urine Negative (Negative); Cocaine Screen Urine Negative (Negative); Opiate Screen Urine Negative (Negative); PCP Screen Urine Negative (Negative); THC Screen Urine Negative (Negative)
[2021-07-29] MEDS: dextrose 5%-lactated ringers 1,000 ML 125 ML IV (18:49)
--- NOTE | 2021-07-29 20:31 | PM.OPHPUD ---
Labor & Delivery H&P Update Date of Procedure: July 29, 2021 Date H&P Performed: 07/29/21 H&P update information: I have reviewed H&P completed within last 30 days, I have examined patient prior to procedure and No changes to prior documentation Admission Diagnosis: Preop diagnosis: 38-week AGA female in labor Planned procedure: Spontaneous vaginal delivery Related Problem List Diagnoses (1) 38 weeks gestation of : (2) Active labor:
--- NOTE | 2021-07-29 21:27 | P.PCNOB_ITS ---
Delivery Note: Date of delivery: July 29, 2021 Pre-delivery diagnoses: 25-year-old 1 at 38 weeks gestational age presenting in active labor Post-delivery diagnoses: Status post spontaneous vaginal status post Procedure: Spontaneous vaginal delivery Op report anesthesia: Epidural Delivering Physician: Viktor Deleon Estimated blood loss (mL): 100 Pre-Delivery Course: The patient presented to the hospital having after being checked in my office and found to be 4 cm dilated 100% effaced and -2 station. She had been having intermittent contractions throughout the night. Her cervix had changed substantially from her previous office visit. Because she lived over an hour away, I elected to augment her labor with Pitocin. An epidural was placed. She then progressed to complete without difficulty. She pushed for a little over 2-1/2 hours. The patient's was notable for having hyperemesis gravidarum early in her . Otherwise her was unremarkable. Her blood type was a positive. She passed her glucose screen. She was GBS negative. She did have an unusual drug screen which was positive early in her . She was positive for barbiturates. It was unclear why she was positive. The remaining drug screens were all negative. The remainder of her labs were within normal limits. Delivery: DELIVERY: The patient progressed to complete without difficulty. She delivered a male with a weight of 6 pounds 5 ounces with Apgars of 7, 9. The baby was delivered from the MANNY position. The baby was then completely delivered and placed on the mother's abdomen. The baby's mouth and nose were suctioned. The cord was then clamped and cut. There was no nuchal cord. There was no meconium. The placenta and 3 vessel cord were delivered intact shortly thereafter. The perineum and vaginal vault were carefully examined. A left vaginal wall laceration was noted. It did not require repair. Both the mother and the baby were in stable condition. Post-Delivery Status: Good A&P Assessment and plan (1) 38 weeks gestation of : I anticipate routine care. The patient is going to attempt breast-feeding. She does have some developmental delays, so we will monitor her breast-feeding carefully to determine if she is able to breast-feed adequately to provide nutrition for her baby. Status: Acute (2) Active labor: Status: Acute Coding Level of Care Code Acute It Operations Manager for Chg Fwd Diagnoses 38 weeks gestation of Z3A.38 Active labor
[2021-07-30] VITALS (11 sets, daily range): BP systolic 105–163; BP diastolic 67–89; PULSE 65–86; RESP 14–17; TEMP 36.4–36.8; O2SAT 98–99
--- NOTE | 2021-07-30 01:25 | ANE.PACU2 ---
Inpatient post-anesthesia follow up: Airway intact: Yes Vital signs: Temperature 98.4 F Pulse Rate 86 Respiratory Rate 17 Blood Pressure 143/85 Pulse Oximetry 100 Oxygen Delivery Me thod Room Air Oxygen Flow Rate Fraction of Inspir ed Oxygen Hydration adequate: Yes Nausea and vomiting: No Pain level: 2 Mental status: Baseline
[2021-07-30] MEDS: HYDROcodone-acetaminophen 5-325 mg Tablet PO (02:24)
--- NOTE | 2021-07-30 07:17 | PM.OBGYDC ---
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 Date of Admission: 07/29/21 11:43 Date of Discharge: 07/30/21 Attending Provider at Admission: Viktor Deleon MD Attending Provider at Discharge: Viktor Deleon MD Primary Care Provider: SHON Rainey Diagnoses at Discharge Discharge Diagnosis (1) 38 weeks gestation of : Status: Acute (2) Active labor: Status: Acute Reason for Visit Reason for Visit: Labor augmentation Information Peripartum Data: Infant Delivery Method: Vaginal Physical Exam Narrative: EXAM NARRATIVE: She is in no acute distress Lungs are clear auscultation bilaterally Her heart has a regular rate and rhythm Her fundus is below the umbilicus and firm Her dressing is clean, dry and intact Her extremities have trace edema Urinary Catheter Management^: Latex Free: Cath Placed During This Visit: yes Reason for Continuing Indwelling Catheter: Required Immobilization for Trauma or Surgery or Anesthesia Urinary Catheter Date of Insertion: 07/29/21 Urinary Catheter Time of Insertion: 14:40 Discharge Data Data Completed and Pending: Pending at discharge Category Date Time Status Hemagram Timed Lab 07/30/21 09:26 Uncollected Labs from last 24 hours 07/29/21 07/29/21 14:30 12:05 WBC 11.8 H RBC 3.86 L Hgb 11.4 L Hct 33.5 L MCV 86.8 MCH 29.5 MCHC 34.0 RDW 13.6 Plt Count 199 MPV 12.7 H Neut % (Auto) 74.0 Lymph % (Auto) 17.9 [place] % (Auto) 7.6 Eos % (Auto) 0.0 Baso % (Auto) 0.2 Neut # (Auto) 8.76 H Lymph # (Auto) 2.1 [place] # (Auto) 0.9 Eos # (Auto) 0.0 Baso # (Auto) 0.0 Nucleated RBC % (a uto) 0 Nucleated RBCs # 0.0 Urine Opiates Scre en Negative Ur Barbiturates Sc reen Negative Ur Phencyclidine S crn Negative Ur Amphetamines Sc reen Negative U Benzodiazepines Scrn Negative Urine Cocaine Scre en Negative U Marijuana (THC) Screen Negative Vitals: Last Vital Signs Temp 98.4 F 07/29/21 18:47 Pulse 83 07/30/21 05:07 Resp 16 07/30/21 05:07 BP 120/76 07/30/21 05:07 Pulse Ox 100 07/29/21 14:09 Discharge Plan Discharge Patient Disposition: Home Condition: Stable Prescriptions: New ibuprofen 800 mg Tablet 800 mg PO TID Qty: 45 RF: 0 hydrocodone-acetaminophen 5-325 mg Tablet 1 tab PO Q6H PRN (Reason: Moderate To Severe Pain) Qty: 28 RF: 0 Continued sertraline 50 mg tablet 50 mg PO DAILY RF: 0 1 tab PO DAILY@2100 RF: 0 Discharge Orders: Discharge Order (Routine); Ordered 07/30/21 Ordered By: Viktor Deleon Referrals: Viktor Deleon MD [Physician] - 4-7 days (Please set up 6-week check as well.) Discharge Diet: As Directed Discharge Activity: Limit activity as instructed Patient Instructions: Opioid Safety Coding Level of Care Code Acute Stock House Worker for Chg Fwd Diagnoses 38 weeks gestation of Z3A.38 Active labor
--- NOTE | 2021-07-30 07:24 | PM.OBGYPN ---
WEALTH MANAGEMENT CONSULTANT Subjective Subjective: Interval history: The patient is doing well. She is breast feeding well. Her bleeding is within normal limits. Her pain is well controlled. There are no concerns. Vitals/I&O/Wt Last Vital Signs Temp 98.4 F 07/29/21 18:47 Pulse 83 07/30/21 05:07 Resp 16 07/30/21 05:07 BP 120/76 07/30/21 05:07 Pulse Ox 100 07/29/21 14:09 07/29/21 07/30/21 07/30/21 22:59 06:59 14:59 Intake Total 496.267 / 2594.752 9459 / 3500.000 Output Total 300 / 300 Balance 496.267 / 6137.116 7549 / 3200.000 Weight last 48 hrs Weight 150 lb Physical Exam Narrative: EXAM NARRATIVE: The patient is alert. She appears comfortable. Her heart has a regular rate and rhythm with no murmurs appreciated. Lungs are clear to auscultation bilaterally. Her fundus is firm and below the umbilicus. Urinary Catheter Management^: Latex Free: Cath Placed During This Visit: yes Reason for Continuing Indwelling Catheter: Required Immobilization for Trauma or Surgery or Anesthesia Urinary Catheter Date of Insertion: 07/29/21 Urinary Catheter Time of Insertion: 14:40 Data : 07/30/21 10:09 A&P Assessment and plan (1) 38 weeks gestation of : The patient continues to do well. I anticipate she will be discharged home tomorrow. Status: Resolved (2) Spontaneous vaginal delivery: Status: Acute Attestations Medical Necessity Statement*: Routine care. Coding Level of Care Code Acute Asphalt Smoother for Chg Fwd Diagnoses 38 weeks gestation of Z3A.38 Spontaneous vaginal delivery O80
[2021-07-30] MEDS: docusate sodium 100 mg Capsule PO ×2 (08:11→18:47)
[2021-07-30] MEDS: prenatal vitamin Capsule 1 CAP PO (08:11)
[2021-07-30] MEDS: ibuprofen 800 mg tablet PO ×3 (08:11→21:04)
[2021-07-30] MEDS: sertraline 50 mg Tablet PO (09:06)
[2021-07-30 10:23] LABS: Hematocrit 29.1 % (37.0-47.0); Hemoglobin 9.7 g/dL (11.5-15.3); Mean Corpuscular HGB Conc 33.3 g/dL (30.0-36.0); Mean Corpuscular Hemoglobin 29.1 pg (28.0-34.0); Mean Corpuscular Volume 87.4 fl (81-99); Mean Platelet Volume 12.6 fL (7.4-10.4); Platelet Count 107 10^3/cmm (130-400); Red Blood Count 3.33 10^6/uL (4.1-5.3); Red Cell Distribution Width 13.5 % (12.1-15.1); White Blood Count 15.3 10^3/uL (4.0-10.0)
[2021-07-30] MEDS: measles,mumps,rubella pf Vial (w/diluent) 0.5 ML SUBCUT (21:04)
--- NOTE | 2021-08-13 16:55 | PM.DCS ---
Discharge Providers Date of Admission: 07/29/21 11:43 Date of Discharge: August 13, 2021 Attending Provider at Admission: Viktor Deleon MD Attending Provider at Discharge: Viktor Deleon MD Primary Care Provider: SHON Rainey Diagnoses at Discharge Discharge Diagnosis (1) 38 weeks gestation of : Status: Resolved (2) Spontaneous vaginal delivery: Status: Acute Reason for Visit Reason for Visit: Labor augmentation Hospital Course Hospital Course The patient presented to the hospital in active labor. Her labor was augmented with pitocin. She progressed to complete without difficulty and had a spontaneous vaginal delivery without complications. Her course was remarkable for having some difficulty , but otherwise her bleeding was wnl, and her pain was well controlled. Physical Exam Narrative: EXAM NARRATIVE: The patient is doing well. Her lungs are clear to auscultation Her heart has a regular rate and rhythm Her abdomen is soft and the fundus is below the umbilicus She has trace edema in her extremities. Urinary Catheter Management^: Latex Free: Cath Placed During This Visit: yes Reason for Continuing Indwelling Catheter: Required Immobilization for Trauma or Surgery or Anesthesia Urinary Catheter Date of Insertion: 07/29/21 Urinary Catheter Time of Insertion: 14:40 Discharge Data Addt'l Data from Hospital Stay: Prior to discharge hgb 9.7 with wbc of 15.3 and platelet count of 107 which was down from 199. Vitals: Last Vital Signs Temp 97.5 F L 07/30/21 21:29 Pulse 74 07/30/21 21:29 Resp 16 07/30/21 21:29 BP 124/77 07/30/21 21:29 Pulse Ox 98 07/30/21 15:33 Discharge Plan Discharge Patient Disposition: Home Condition: Stable Prescriptions: New ibuprofen 800 mg Tablet 800 mg PO TID Qty: 45 RF: 0 Continued sertraline 50 mg tablet 50 mg PO DAILY RF: 0 1 tab PO DAILY@2100 RF: 0 Discharge Orders: Discharge Order (Routine); Ordered 07/30/21 Ordered By: Viktor Deleon Referrals: Viktor Deleon MD [Physician] - 09/10/21 2:30 pm (* Your 6 week follow up appointment is on September 10, 2021 at 2:30pm) Discharge Diet: As Directed Discharge Activity: Limit activity as instructed Patient Instructions: Depression (DC), Depression (GEN), Bleeding (DC), Preeclampsia and Eclampsia After Delivery (GEN), OB Discharge Report, OB Food/Drug Interaction Guide, Opioid Safety, OB Home Care, OB Proud Parent Packet, OB Vaginal Deliveries Discharge Attestations Time Spent in Discharge Care*: greater than 30 min Specific Discharge Activities: educating patient and educating and/or supporting family/caregiver Quality Metrics Clinical Quality Measures During this hospital stay, did patient experience: None Coding Level of Care Code Acute Chg FW DC note Diagnoses 38 weeks gestation of Z3A.38 Spontaneous vaginal delivery O80
== END 2021-07-30 21:15 | disposition home or self-care (01) | DRG 807 ==
LOC: OBGYN 11:44
PROVIDERS: Admitting Provider Family Medicine; PCP Nurse Practitioner; Visit Provider Family Medicine
DX: O80 Encounter for full-term uncomplicated delivery (principal); Z37.0 Single live birth; Z3A.38 38 weeks gestation of pregnancy
CPT/HCPCS: 12345; 36415; 51702; 59025; 59409; 80306; 85025; 85027; 90707; 96372; 98960; 99211

== ENCOUNTER → 2022-07-29 16:42 | Outpatient (BNVA) | payer OTHER, MEDICAID, SELFPAY | PROVIDERS: PCP Nurse Practitioner; Visit Provider Nurse Practitioner | DX: R10.11 Right upper quadrant pain (principal); F41.9 Anxiety disorder, unspecified | CPT/HCPCS: 80053; 81000; 84443; 85025 ==

== ENCOUNTER 2022-12-08 07:00 | Outpatient (CLI) | payer OTHER, MEDICAID, SELFPAY ==
--- NOTE | 2022-12-08 | US_ITS ---
WS: [id number] OBSTETRICAL ULTRASOUND COMPLETE HISTORY: NORMAL 2ND TRIMESTER COMPARISON: None available. Single intrauterine gestation in breech to transverse presentation. Cervix is Closed and normal length. Cervical length is 4.0 cm. Normal amount of amniotic fluid surrounds the fetus. Placenta: Anterior, no previa or abruption. Placenta grade 0 Heart: 133 BPM. Four chambers are identified. Limited outflow tracts. Anatomy: Intracranial structures and spine are normal. kidneys, stomach and urinary bladd er are unremarkable. Abdominal wall, three-vessel cord and cord insertion site are normal. 4 extremities are present. profile: Poorly visualized due to position. Gender: Female. measurements: BPD = 4.8 cm = 20w3d; HC = 18.6 cm = 21w0d; AC = 15.6 cm = 20w5d; FL = 3.5 cm = 21w0d; EFW: 380 g. Not available. Biometry is internally concordant. AGA by ultrasound: 20w5d JESSE by ultrasound: 04/22/2023 US/US OB >= 14 weeks fetus [id number] IMPRESSION: 1. Single intrauterine gestation of 20w5d with an JESSE of 04/22/2023. 2. Limited evaluation of profile and cardiac outflow tracts. The remaini ng anatomy is negative.
== END 2022-12-08 07:01 | disposition home or self-care (01) ==
PROVIDERS: PCP Nurse Practitioner; Visit Provider Family Medicine
DX: Z34.82 Encounter for supervision of other normal pregnancy, second trimester (principal); Z3A.20 20 weeks gestation of pregnancy
CPT/HCPCS: 76805

== ENCOUNTER → 2022-12-31 15:53 | Outpatient (BNVA) | payer MEDICAID, SELFPAY | PROVIDERS: PCP Nurse Practitioner; Visit Provider Nurse Practitioner Family | DX: J02.9 Acute pharyngitis, unspecified (principal) | CPT/HCPCS: 87071; 87880 ==

== ENCOUNTER 2023-04-02 17:58 | Outpatient (CLI) | payer MEDICAID, SELFPAY ==
[2023-04-02] VITALS (8 sets, daily range): BP systolic 120–132; BP diastolic 77–85; PULSE 73–77; RESP 15–16; TEMP 36.1; BMI 23.6
[2023-04-02] MEDS: lactated ringers 1,000 ML 999 ML IV (18:42)
[2023-04-02 18:54] LABS: Amphetamines Screen Urine Negative (Negative); Barbiturates Screen Urine Negative (Negative); Benzodiazepines Screen Urine Negative (Negative); Cocaine Screen Urine Negative (Negative); Opiate Screen Urine Negative (Negative); PCP Screen Urine Negative (Negative); THC Screen Urine Negative (Negative)
[2023-04-02 19:06] LABS: Bilirubin Urine Neg (Negative); Blood Urine Neg (Negative); Glucose Urine UA Norm (Normal); Ketones Urine 1+ (Negative); Leukocyte Esterase Urine Negative (Negative); Nitrate Urine Negative (Negative); Protein Urine Neg (Negative); Urine Appearance Hazy (CLEAR); Urine Color Yellow (Yellow); Urobilinogen Urine 4 mg/dL (Negative); pH Urine 5 (5-7)
[2023-04-02 19:07] LABS: Add Urine Culture? No; Bacteria Urine TRACE /hpf; Mucus Urine 3+ /hpf; Squamous Epithelial Cell Urine 25-40 /hpf (0-5); WBC Urine 0-4 /hpf (0-5)
== END 2023-04-02 21:05 | disposition home or self-care (01) ==
LOC: OPOB 17:59 → OBGYN 18:00
PROVIDERS: PCP Nurse Practitioner; Visit Provider Family Medicine
DX: O47.9 False labor, unspecified (principal); Z3A.00 Weeks of gestation of pregnancy not specified
CPT/HCPCS: 36415; 59025; 80306; 81001; 99211; J7120

== ENCOUNTER 2023-04-13 23:21 | Inpatient (IN) | payer MEDICAID, SELFPAY ==
[2023-04-13] VITALS (8 sets, daily range): BP systolic 126–129; BP diastolic 61–82; PULSE 85–112; RESP 15–16; O2SAT 98–100; BMI 27.3
[2023-04-13 23:13] LABS: Nitrazine Paper, PH Positive
[2023-04-13 23:17] LABS: Basophils % 0.2 %; Eosinophils % 0.3 %; Hematocrit 28.9 % (37.0-47.0); Hemoglobin 9.1 g/dL (11.5-15.3); Lymphocytes # 1.8 10^3/uL (0.8-4.8); Lymphocytes % 14.8 %; Mean Corpuscular HGB Conc 31.5 g/dL (30.0-36.0); Mean Corpuscular Hemoglobin 25.2 pg (28.0-34.0); Mean Corpuscular Volume 80.1 fl (81-99); Mean Platelet Volume 12.3 fL (7.4-10.4); Monocytes # 0.9 10^3/uL (0.2-0.9); Monocytes % 7.2 %; Neutrophils % 77.2 %; Nucleated Red Blood Cells % 0 %; Platelet Count 257 10^3/cmm (130-400); Red Blood Count 3.61 10^6/uL (4.1-5.3); White Blood Count 11.8 10^3/uL (4.0-10.0)
[2023-04-13] MEDS: ampicillin 2,000 MG in sodium chloride 0.9% (plus) 50 ML 100 MG IV (23:30)
[2023-04-13] MEDS: lactated ringers 1,000 ML 999 ML IV (23:30)
[2023-04-13] MEDS: oxytocin 30 UNIT/500 ML BAG 600 UNIT IV (23:59)
[2023-04-14] VITALS (24 sets, daily range): BP systolic 106–138; BP diastolic 58–83; PULSE 65–96; RESP 15–18; TEMP 35.9–36.7; O2SAT 99
--- NOTE | 2023-04-14 00:26 | PM.OPHPUD ---
Labor & Delivery H&P Update Date of Procedure: April 14, 2023 Date H&P Performed: 08/06/21 Admission Diagnosis: 27-year-old 2 para 1-0-0-1 at 38 weeks estimated gestational age presenting with spontaneous rupture of membranes Planned procedure: Spontaneous vaginal delivery Other information: The patient is an otherwise healthy 27-year-old female who presented to the hospital at 38 weeks estimated gestational age with spontaneous rupture membranes. Her been relatively unremarkable. Her lab work was also relatively unremarkable. Her blood type was a positive. Her antibody screen was negative. She was rubella immune. She passed her glucose screen. Her infectious disease profile was within normal limits. She was noted to be GBS positive. GBS protocol was initiated after arrival.
--- NOTE | 2023-04-14 00:30 | PM.DELIVERY ---
Delivery Note: Date of delivery: April 14, 2023 Pre-delivery diagnoses: 27-year-old 2 para 1-0-0-1 at 38 weeks estimated gestational age with spontaneous rupture membranes Post-delivery diagnoses: Status post spontaneous vaginal delivery Procedure: Spontaneous vaginal delivery Delivering Physician: Viktor Deleon Estimated blood loss (mL): 50 Pre-Delivery Course: The patient presented to the hospital with spontaneous rupture of membranes 2 to 3 hours prior to delivery. After arriving at the hospital group B strep protocol was initiated. She then quickly progressed to complete within an hour the time I was contacted. Delivery: DELIVERY: The patient progressed to complete without difficulty. She delivered a female with a weight of 6 pounds 12 ounces with Apgars of 4, 7. The baby was delivered from the MANNY position and placed on the mother's abdomen. The cord was then clamped and cut. There was no nuchal cord. There was no meconium. The placenta and 3 vessel cord were delivered intact shortly thereafter. The perineum and vaginal vault were carefully examined. No lacerations were noted. Both the mother was in stable condition, and the baby was actively being resuscitated. Post-Delivery Status: Good History History History 2 Term 1 0 Miscarriages/Ectopic 0 Living Children 1 A&P Assessment and plan (1) Spontaneous rupture of membranes: (2) Spontaneous vaginal delivery: Anticipate routine care. Her baby will require a 48-hour stay due to inadequately prophylaxis for GBS (3) 38 weeks gestation of : Coding Level of Care Code Acute Code for Chg Fwd Diagnoses Spontaneous rupture of membranes Spontaneous vaginal delivery O80 38 weeks gestation of Z3A.38
[2023-04-14 05:27] LABS: Hematocrit 26.4 % (37.0-47.0); Hemoglobin 8.3 g/dL (11.5-15.3); Mean Corpuscular HGB Conc 31.4 g/dL (30.0-36.0); Mean Corpuscular Hemoglobin 25.2 pg (28.0-34.0); Mean Corpuscular Volume 80.2 fl (81-99); Mean Platelet Volume 11.6 fL (7.4-10.4); Platelet Count 187 10^3/cmm (130-400); Red Blood Count 3.29 10^6/uL (4.1-5.3); Red Cell Distribution Width 13.9 % (12.1-15.1); White Blood Count 12.7 10^3/uL (4.0-10.0)
[2023-04-14] MEDS: ibuprofen 800 mg tablet PO ×3 (08:54→21:05)
[2023-04-14] MEDS: prenatal vitamin Capsule 1 CAP PO (08:54)
[2023-04-14] MEDS: docusate sodium 100 mg Capsule PO ×2 (08:54→21:05)
[2023-04-14] MEDS: escitalopram 10 mg Tablet PO (09:10)
[2023-04-15 04:00] VITALS: BP 116/74; PULSE 67; RESP 16; TEMP 36.8; O2SAT 98
[2023-04-15] MEDS: docusate sodium 100 mg Capsule PO ×2 (10:10→19:27)
[2023-04-15] MEDS: prenatal vitamin Capsule 1 CAP PO (10:10)
[2023-04-15] MEDS: ibuprofen 800 mg tablet PO ×3 (10:10→21:09)
[2023-04-15] MEDS: escitalopram 10 mg Tablet PO (10:10)
[2023-04-15 11:00] VITALS: BP 133/88; PULSE 72; RESP 16; TEMP 36.7; O2SAT 97
[2023-04-15 16:02] VITALS: BP 126/81; PULSE 78; RESP 16; TEMP 36.8; O2SAT 98
[2023-04-15 21:10] VITALS: BP 122/82; PULSE 88; RESP 18; TEMP 36.9; O2SAT 98
--- NOTE | 2023-04-16 06:42 | P.DS_ITS ---
Discharge Providers CLUB FORMER Date of Admission: 04/13/23 23:21 Date of Discharge: 04/17/23 Attending Provider at Admission: Viktor Deleon MD Attending Provider at Discharge: Viktor Deleon MD Primary Care Provider: SHON Rainey Diagnoses at Discharge Discharge Diagnosis (1) Spontaneous rupture of membranes: Status: Acute (2) Spontaneous vaginal delivery: Status: Resolved (3) 38 weeks gestation of : Status: Resolved Reason for Visit Reason for Visit: PROM and contractions Hospital Course Hospital Course The patient presented to the hospital in active labor. She progressed to complete and had an unremarkable delivery of a healthy infant. She was GBS positive and delivered before full antibiotics could be given. Her course was also unremarkable. Bleeding was within normal limits. Her pain was well controlled. She breast-fed well. Information Peripartum Data: Infant Delivery Method: Vaginal Physical Exam Narrative: The patient is alert. She appears comfortable. Her heart has a regular rate and rhythm with no murmurs appreciated. Lungs are clear to auscultation bilaterally. Her fundus is firm and below the umbilicus. History History History 2 Term 1 0 Miscarriages/Ectopic 0 Living Children 1 Discharge Data Studies Completed and Pending Laboratory Results WBC 12.7 10^3/uL (4.0-10.0) H 04/14/23 05:20 RBC 3.29 10^6/uL (4.1-5.3) L 04/14/23 05:20 Hgb 8.3 g/dL (11.5-15.3) L 04/14/23 05:20 Hct 26.4 % (37.0-47.0) L 04/14/23 05:20 MCV 80.2 fl (81-99) L 04/14/23 05:20 MCH 25.2 pg (28.0-34.0) L 04/14/23 05:20 MCHC 31.4 g/dL (30.0-36.0) 04/14/23 05:20 RDW 13.9 % (12.1-15.1) 04/14/23 05:20 Plt Count 187 10^3/cmm (130-400) 04/14/23 05:20 MPV 11.6 fL (7.4-10.4) H 04/14/23 05:20 Neut % (Auto) 77.2 % 04/13/23 23:05 Lymph % (Auto) 14.8 % 04/13/23 23:05 [place] % (Auto) 7.2 % 04/13/23 23:05 Eos % (Auto) 0.3 % 04/13/23 23:05 Baso % (Auto) 0.2 % 04/13/23 23:05 Neut # (Auto) 9.10 10^3/uL (1.8-7.7) H 04/13/23 23:05 Lymph # (Auto) 1.8 10^3/uL (0.8-4.8) 04/13/23 23:05 [place] # (Auto) 0.9 10^3/uL (0.2-0.9) 04/13/23 23:05 Eos # (Auto) 0.0 10^3/uL (0.0-0.8) 04/13/23 23:05 Baso # (Auto) 0.0 10^3/uL (0.0-0.1) 04/13/23 23:05 Nucleated RBC % (auto) 0 % 04/13/23 23:05 Nucleated RBCs # 0.0 /100WBC 04/13/23 23:05 Vitals Last Vital Signs Temp 98.5 F 04/15/23 21:10 Pulse 88 04/15/23 21:10 Resp 18 04/15/23 21:10 BP 122/82 04/15/23 21:10 Pulse Ox 98 04/15/23 21:10 O2 Del Method Room Air 04/15/23 21:10 Discharge Plan Discharge Patient Disposition: Home Prescriptions: Continued 1 tab PO DAILY@2100 escitalopram oxalate 10 mg Tablet 10 mg PO DAILY Discharge Orders: Discharge Order (Routine); Ordered 04/15/23 Ordered By: Viktor Deleon Referrals: Viktor Deleon MD [Physician] - 05/28/23 3:20 pm Discharge Diet: Usual diet Discharge Activity: Limit activity as instructed Patient Instructions: Ibuprofen (By mouth), Depression (DC), Your Baby (DC), and Nipple Soreness (DC), Preeclampsia and Eclampsia After Delivery (GEN), OB Discharge Report, OB Food/Drug Interaction Guide, OB Care at Home, Opioid Safety, Abnormal Bleeding Activity Restrictions/Additional Instructions: You prescription for Ibuprofen was called in to [facility] in [place] at 6:15 p.m. on 04/15/23. The prescription is Ibuprofen 800 mg three times a day for pain. Discharge Attestations CLUB FORMER Time Spent in Discharge Care*: less than 30 min Coding Level of Care Code Acute Code for Chg Fwd Diagnoses Spontaneous rupture of membranes Spontaneous vaginal delivery O80 38 weeks gestation of Z3A.38
== END 2023-04-15 21:20 | disposition home or self-care (01) | DRG 807 ==
LOC: OPOB 23:22 → OBGYN 23:22
PROVIDERS: Admitting Provider Family Medicine; PCP Nurse Practitioner; Visit Provider Family Medicine
DX: O99.824 Streptococcus B carrier state complicating childbirth (principal); Z37.0 Single live birth; Z3A.38 38 weeks gestation of pregnancy
CPT/HCPCS: 36415; 59409; 83986; 85025; 85027; J0290; J2590; J7120

== ENCOUNTER → 2025-04-27 15:34 | Outpatient (BNVA) | payer MEDICAID, SELFPAY | PROVIDERS: PCP Nurse Practitioner; Visit Provider Nurse Practitioner Women's Health | DX: Z12.4 Encounter for screening for malignant neoplasm of cervix (principal) | CPT/HCPCS: 88175 ==